=== PATIENT | female | born 1950 | race Caucasian/White ===

== ENCOUNTER 2016-08-27 20:54 | Inpatient (IN) | payer MEDICARE, OTHER ==
[~2016-08-27] VITALS: Ht 152.4 cm; Wt 94.2 kg
[~2016-08-27 20:54] MED LIST: KLON2TAB PO; LIDO5DIS35 TD; LORT7.5T3 PO
[2016-08-27 22:16] VITALS: BP 139/65; PULSE 75; RESP 16; TEMP 97.7; O2SAT 93
[2016-08-27] MEDS ORDERED: ESCI20TA PO (22:26)
[2016-08-27] MEDS ORDERED: RANI150C PO (22:26)
[2016-08-27] MEDS ORDERED: FERR325T PO (22:26)
[2016-08-27] MEDS ORDERED: GABA300C5 PO (22:26)
[2016-08-27] MEDS ORDERED: CLON2TAB PO (22:26)
[2016-08-27] MEDS ORDERED: LURA20TA PO (22:26)
[2016-08-27] MEDS ORDERED: PROP10TA6 PO (22:26)
[2016-08-27] MEDS ORDERED: GABA600T PO (22:26)
[2016-08-27] MEDS ORDERED: CALC1TAB87 PO (22:26)
[2016-08-27] MEDS ORDERED: CALC1CHW CHEW (22:26)
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
[2016-08-27 23:12] VITALS: BP 114/69; PULSE 73; RESP 18; O2SAT 94
[2016-08-28 00:01] LABS: BACTERIA, URINE RARE /hpf; BLOOD, URINE NEG (NEG); COMMENT (UR) CULT NOT INDICATED; CULTURE IF INDICATED CULT NOT INDICATED; GLUCOSE,URINE NEG (NEG); KETONE, URINE NEG (NEG); MUCUS URINE FEW /lpf (OCC); NITRITE,URINE NEG (NEG); SQUAMOUS EPITHELIAL CELL URINE 2 /hpf (0-5); TRANSITIONAL EPI CELLS, URINE <1 /hpf; URINE COLOR YELLOW (YELLW/STRAW)
[2016-08-28 00:02] LABS: AUTOMATED NEUTROPHIL # 5.8 TH/MM3 (1.8-7.7); BASOPHIL # 0.1 TH/MM3 (0-0.2); BASOPHIL % 0.9 % (0.0-2.0); EOSINOPHIL # 0.1 TH/MM3 (0-0.4); EOSINOPHIL % 1.4 % (0.0-4.0); HEMO FLAGS DIFF FINAL; LYMPH % 24.7 % (9.0-44.0); LYMPHOCYTE # 2.3 TH/MM3 (1.0-4.8); MEAN CELL VOLUME 90.3 FL (80.0-100.0); MEAN CORPUSCULAR HEMOGLOBIN 30.2 PG (27.0-34.0); MEAN CORPUSCULAR HGB CONC 33.5 % (32.0-36.0); MONO % 10.6 % (0.0-8.0); NEUT % 62.4 % (16.0-70.0); PLATELET COUNT 246 TH/MM3 (150-450); RED BLOOD COUNT 4.87 MIL/MM3 (4.00-5.30); RED CELL DISTRIBUTION WIDTH 13.2 % (11.6-17.2); WHITE BLOOD COUNT 9.3 TH/MM3 (4.0-11.0)
[2016-08-28 00:06] LABS: AMPHETAMINE, URINE NEG (NEG); BARBITURATES, URINE NEG (NEG); COCAINE, URINE NEG (NEG)
[2016-08-28 00:19] LABS: ANION GAP 6 MEQ/L (5-15); AST (GOT) 11 U/L (15-37); BLOOD UREA NITROGEN 16 MG/DL (7-18); CHLORIDE 105 MEQ/L (98-107); GLOMERULAR FILTRATION RATE 47 ML/MIN (>89); POTASSIUM 3.8 MEQ/L (3.5-5.1); SODIUM (NA) 143 MEQ/L (136-145)
[2016-08-28 00:22] LABS: ALKALINE PHOSPHATASE 77 U/L (45-117); ALT (GPT) 20 U/L (10-53); TOTAL BILIRUBIN ADULT 0.3 MG/DL (0.2-1.0)
[2016-08-28] MEDS ORDERED: diphenhydrAMINE HCL 50 MG CAP - HS PRN PO (02:45)
[2016-08-28] MEDS ORDERED: MAGNESIUM HYDROXIDE SUSP 30 ML CUP PO PRN (02:45)
[2016-08-28] MEDS ORDERED: ALUMINUM/MAGNESIUM/SIMETH 30 ML CUP PO PRN (02:45)
[2016-08-28] MEDS ORDERED: diphenhydrAMINE HCL 50 MG/ML VIAL - HS PRN IM (02:45)
[2016-08-28] MEDS ORDERED: PILL SPLITTER OTHER PRN (03:00)
[2016-08-28] MEDS ORDERED: CALCIUM CARBONATE 500 MG CHEWABLE TAB CHEW PRN (03:00)
[2016-08-28 04:00] VITALS: BP 129/85; PULSE 83; RESP 16; TEMP 97.7; O2SAT 92
[2016-08-28 04:16] VITALS: BP 134/72
[2016-08-28] MEDS: PROPRANOLOL HCL 10 MG TAB PO SCH ×2 (09:00→21:25)
[2016-08-28] MEDS: LURASIDONE 40 MG TAB PO SCH (10:23)
[2016-08-28] MEDS: ESCITALOPRAM OXALATE 20 MG TAB PO SCH (10:23)
[2016-08-28] MEDS: CALCIUM/VITAMIN D 250 MG/125 U TAB PO SCH (10:23)
[2016-08-28] MEDS: FAMOTIDINE 20 MG TAB PO SCH ×2 (10:23→21:25)
[2016-08-28] MEDS: FERROUS SULFATE 325 MG (65 MG ELEMENTAL IRON) TAB PO SCH (10:23)
[2016-08-28] MEDS: GABAPENTIN 300 MG CAP PO SCH ×3 (10:28→21:25)
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
[2016-08-28 19:36] VITALS: BP 122/72; PULSE 77; RESP 17; TEMP 97.9; O2SAT 94
[2016-08-28] MEDS: clonazePAM 1 MG TAB PO SCH (21:25)
[2016-08-29] MEDS: ACETAMINOPHEN 325 MG TAB PO PRN ×3 (05:26→21:14)
[2016-08-29 05:56] VITALS: BP 110/57; PULSE 72; RESP 17; TEMP 97.4; O2SAT 100
[2016-08-29] MEDS: LURASIDONE 40 MG TAB PO SCH (09:40)
[2016-08-29] MEDS: CALCIUM/VITAMIN D 250 MG/125 U TAB PO SCH (09:40)
[2016-08-29] MEDS: FAMOTIDINE 20 MG TAB PO SCH ×2 (09:40→21:07)
[2016-08-29] MEDS: FERROUS SULFATE 325 MG (65 MG ELEMENTAL IRON) TAB PO SCH (09:40)
[2016-08-29] MEDS: ESCITALOPRAM OXALATE 20 MG TAB PO SCH (09:41)
[2016-08-29] MEDS: GABAPENTIN 300 MG CAP PO SCH ×3 (09:46→21:06)
[2016-08-29 10:17] VITALS: BP 137/73; PULSE 85
[2016-08-29] MEDS: PROPRANOLOL HCL 10 MG TAB PO SCH ×2 (10:21→21:07)
--- NOTE | 2016-08-29 13:29 | HHI.PYPN ---
Subjective Remarks Pt seen and discussed with staff. She reports that she thinks she might have had a psychotic break. She states that at the group home she was experiencing visual hallucinations of a zoroastrian nature (crucifixes turning into fish, etc) and having difficulty determining anxiety. "I felt like I was waking up in a totally different place and I just felt that I wasn't where I was supposed to be." Pt reports that mood is depressed but calmer now with medications. No medication side effects. Review of Systems Psychiatric: COMPLAINS OF: Depression, Hallucinations Objective Alert: Yes [place]: Person, Place, Date, Situation Mood: Anxious, Depressed Affect: Restricted Memory Intact: Comment (impaired) Hallucinations: Visual Delusions: No Delusion Type: Other (none) Suicidal: Ideation (denies) Homicidal: Ideation (denies) Insight/Judgement poor Vitals/IOs Vital Signs Date Time Temp Pulse Resp B/P Pulse Ox O2 Delivery O2 Flow Rate FiO2 08/29/16 10:17 85 137/73 08/29/16 05:56 97.4 17 100 08/27/16 23:12 Room Air Intake and Output 08/28/16 08/28/16 08/29/16 08:00 16:00 00:00 Intake Total 960 ml 480 ml Balance 960 ml 480 ml Assessment & Plan Problem List: (1) Major depressive disorder, recurrent ICD Code: F33.9 (2) Adjustment disorder ICD Code: F43.20 Assessment & Plan Continue current tx plan. Estimated LOS: days Justification for Cont. Inpt. impairments in reality testing. Request HC Surrog/Guard Advoc?: No Problem Qualifiers (1) Adjustment disorder: Qualified Code: F43.24 - Adjustment disorder with disturbance of conduct Sallie Cruz MD Aug 29, 2016 13:29
[2016-08-29] MEDS: ASPIRIN EC 81 MG TABEC PO SCH (15:23)
[2016-08-29] MEDS: hydrOXYzine HCL 50 MG TAB PO PRN (15:28)
--- NOTE | 2016-08-29 15:31 | HHI.PR ---
Subjective Remarks Follow-up visit CVA, CKD 3, lupus, COPD. Patient seen today. Reports she is doing well. Denies pain and discomfort. Denies SOB/ dyspnea. Denies chest pain , palpitations, headaches, dizziness. Denies fevers, chills, n/v/d. Objective Vitals Vital Signs Date Time Temp Pulse Resp B/P Pulse Ox O2 Delivery O2 Flow Rate FiO2 08/29/16 10:17 85 137/73 08/29/16 05:56 97.4 72 17 110/57 100 08/28/16 19:36 97.9 77 17 122/72 94 I/O 08/28/16 08/28/16 08/28/16 08/29/16 08/29/16 08/29/16 07:00 15:00 23:00 07:00 15:00 23:00 Intake Total 960 ml 480 ml 0 ml 480 ml Balance 960 ml 480 ml 0 ml 480 ml Intake Oral 960 ml 480 ml 0 ml 480 ml # Voids 1 1 2 # Bowel Movements 0 0 Result Diagram: 08/27/16 23308/27/16 2330 Objective Remarks GENERAL: This is an obese, well-developed patient, in no apparent distress. SKIN: No rashes, ecchymoses or lesions. Cool and dry. HEAD: Atraumatic. Normocephalic. No temporal or scalp tenderness. EYES: Pupils equal round and reactive. Extraocular motions intact. No scleral icterus. No injection or drainage. Left lid droop. ENT: Nose without bleeding. Throat without erythema. Uvula midline. Airway patent. NECK: Trachea midline. No JVD or lymphadenopathy. Supple, nontender, no meningeal signs. CARDIOVASCULAR: Regular rate and rhythm without murmurs, gallops, or rubs. RESPIRATORY: Clear to auscultation. Breath sounds equal bilaterally. No wheezes , rales, or rhonchi. GASTROINTESTINAL: Abdomen soft, non-tender, nondistended. Bowel sounds active 4. No guarding. MUSCULOSKELETAL: Extremities without clubbing, cyanosis, or edema. No joint tenderness, effusion, or edema noted. No calf tenderness. Negative Homans sign bilaterally. NEUROLOGICAL: Awake and alert. Call him. Oriented 3. Motor and sensory grossly within normal limits. Normal speech. Unsteady gait walker use. A/P Problem List: (1) Major depressive disorder, recurrent ICD Code: F33.9 Status: Acute (2) Adjustment disorder ICD Code: F43.20 Status: Acute (3) CKD (chronic kidney disease) stage 3, GFR 30-59 ml/min ICD Code: N18.3 Status: Chronic (4) Lupus (systemic lupus erythematosus) ICD Code: M32.9 Status: Chronic (5) Fibromyalgia ICD Code: M79.7 Status: Chronic (6) COPD (chronic obstructive pulmonary disease) ICD Code: J44.9 Status: Chronic (7) CVA (cerebral vascular accident) ICD Code: I63.9 Status: Resolved Assessment and Plan Admitted to inpatient psychiatry unit for further evaluation. Consulted for medical management. Depression, adjustment disorder, bipolar disorder, vascular dementia - managed by psychiatry team. CVA - BP controlled. - Not on any BP meds. ASA recommended to discuss with PCP. - Check lipid profile pending - Fall precaution. Continue walker use. CKD 3 - creatinine 1.15, EGFR 47 - Avoid nephrotoxins. - Monitor BMP Lupus - no current flare ups Fibromyalgia, neuropathy - continue Neurontin. COPD - no exacerbation noted. Check lipid profile, and thyroid studies Discussed with patient, RN Written by Isaiah Lang, acting as scribe for Dr. Newsome on 08/29/16 at 14:50. The documentation accurately reflects the work performed [id number] by me on at 15:43. Problem Qualifiers (1) Adjustment disorder: Qualified Code: F43.24 - Adjustment disorder with disturbance of conduct Isaiah Adler Aug 29, 2016 15:31 Michael Newsome MD Aug 29, 2016 15:44
[2016-08-29 17:30] LABS: HDL CHOLESTEROL 65.2 MG/DL (40.0-60.0)
[2016-08-29 19:00] VITALS: BP 133/79; PULSE 90; RESP 17; TEMP 99.2; O2SAT 95
[2016-08-29] MEDS: clonazePAM 1 MG TAB PO SCH (21:07)
--- NOTE | 2016-08-29 22:07 | RADRPT ---
EXAM DATE/TIME: 08/29/2016 17:54 [facility] COMPARISON: No previous studies available for comparison. INDICATIONS : CVA. MEDICAL HISTORY : Renal failure, chronic. SURGICAL HISTORY : Cholecystectomy. Tubal ligation. ENCOUNTER: Initial ACUITY: 1 day PAIN SCORE: 0/10 LOCATION: cranial TECHNIQUE: Multiplanar, multisequence MRI of the brain was performed without contrast. FINDINGS: CEREBRUM: The ventricles are normal for age. No evidence of midline shift, mass lesion, hemorrhage or acute in farction. No extraaxial fluid collections are seen. The pituitary gland and suprasellar cistern are normal in configuration. WHITE MATTER: Mild signal abnormalities are seen in the white matter. POSTERIOR FOSSA: The cerebellum and brainstem are intact. The 4th ventricle is midline. The cerebellopontine angle is unremarkable. The cerebellar tonsils are normal in position. DIFFUSION IMAGING: No focal areas of restricted diffusion are seen. No evidence of acute infarction. EXTRACRANIAL: The visualized portions of the orbits and paranasal sinuses are unremarkable. CONCLUSION: 1. Minimal white matter ischemic changes. No acute findings. No recent infarct, mass effect or shift. Chema Steen MD on August 29, 2016 at 22:04 Board Certified Radiologist. This report was verified electronically.
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
[2016-08-30 05:08] VITALS: BP 118/67; PULSE 77; RESP 18; TEMP 98.6; O2SAT 95
[2016-08-30] MEDS: ASPIRIN EC 81 MG TABEC PO SCH (09:00)
[2016-08-30] MEDS: ESCITALOPRAM OXALATE 20 MG TAB PO SCH (10:00)
[2016-08-30] MEDS: CALCIUM/VITAMIN D 250 MG/125 U TAB PO SCH (10:00)
[2016-08-30] MEDS: FERROUS SULFATE 325 MG (65 MG ELEMENTAL IRON) TAB PO SCH (10:00)
[2016-08-30] MEDS: LURASIDONE 40 MG TAB PO SCH (10:01)
[2016-08-30] MEDS: FAMOTIDINE 20 MG TAB PO SCH ×2 (10:01→20:39)
[2016-08-30] MEDS: GABAPENTIN 300 MG CAP PO SCH ×3 (10:25→20:38)
[2016-08-30] MEDS: ACETAMINOPHEN 325 MG TAB PO PRN (10:25)
[2016-08-30] MEDS: PROPRANOLOL HCL 10 MG TAB PO SCH ×2 (10:32→20:39)
--- NOTE | 2016-08-30 10:34 | HHI.PR ---
Subjective Remarks F/U CVA. No complaints agrees with asa and statin aware of possible SE dw RN Objective Vitals Vital Signs Date Time Temp Pulse Resp B/P Pulse Ox O2 Delivery O2 Flow Rate FiO2 08/30/16 05:08 98.6 77 18 118/67 95 08/29/16 19:00 99.2 90 17 133/79 95 I/O 08/29/16 08/29/16 08/29/16 08/30/16 08/30/16 08/30/16 07:00 15:00 23:00 07:00 15:00 23:00 Intake Total 0 ml 960 ml 1030 ml 0 ml 0 ml Balance 0 ml 960 ml 1030 ml 0 ml 0 ml Intake Oral 0 ml 960 ml 1030 ml 0 ml 0 ml # Voids 2 1 3 3 # Bowel Movements 0 Result Diagram: 08/27/16 2330 08/27/16 2330 Imaging Last Impressions Brain MRI 08/29/16 0000 Signed Impressions: Service Date/Time: Monday, August 29, 2016 17:54 - CONCLUSION: 1. Minimal white matter ischemic changes. No acute findings. No recent infarct, mass effect or shift. Chema Steen MD Objective Remarks GENERAL: This is an obese, well-developed patient, in no apparent distress. SKIN: No rashes, ecchymoses or lesions. Cool and dry. HEAD: Atraumatic. Normocephalic. No temporal or scalp tenderness. EYES: Pupils equal round and reactive. Extraocular motions intact. No scleral icterus. No injection or drainage. Left lid droop. ENT: Nose without bleeding. Throat without erythema. Uvula midline. Airway patent. NECK: Trachea midline. No JVD or lymphadenopathy. Supple, nontender, no meningeal signs. CARDIOVASCULAR: Regular rate and rhythm without murmurs, gallops, or rubs. RESPIRATORY: Clear to auscultation. Breath sounds equal bilaterally. No wheezes , rales, or rhonchi. GASTROINTESTINAL: Abdomen soft, non-tender, nondistended. Bowel sounds active 4. No guarding. MUSCULOSKELETAL: Extremities without clubbing, cyanosis, or edema. No joint tenderness, effusion, or edema noted. No calf tenderness. Negative Homans sign bilaterally. NEUROLOGICAL: Awake and alert. Call him. Oriented 3. Motor and sensory grossly within normal limits. Normal speech. Unsteady gait walker use. A/P Problem List: (1) Major depressive disorder, recurrent ICD Code: F33.9 Status: Acute (2) Adjustment disorder ICD Code: F43.20 Status: Acute (3) CKD (chronic kidney disease) stage 3, GFR 30-59 ml/min ICD Code: N18.3 Status: Chronic (4) Lupus (systemic lupus erythematosus) ICD Code: M32.9 Status: Chronic (5) Fibromyalgia ICD Code: M79.7 Status: Chronic (6) COPD (chronic obstructive pulmonary disease) ICD Code: J44.9 Status: Chronic (7) CVA (cerebral vascular accident) ICD Code: I63.9 Status: Resolved Assessment and Plan Admitted to inpatient psychiatry unit for further evaluation. Consulted for medical management. Depression, adjustment disorder, bipolar disorder, vascular dementia - managed by psychiatry team. CVA , hx- MRI no acute findings. BP controlled. - Not on any BP meds. ASA recommended - Check lipid profile elevated LDL agrees with lipitor f/u LFts - Fall precaution. Continue walker use. - neuro ordered CUS and ECHO f/u results CKD 3 - creatinine 1.15, EGFR 47 - Avoid nephrotoxins. - Monitor BMP Lupus - no current flare ups Fibromyalgia, neuropathy - continue Neurontin. COPD - no exacerbation noted. Discharge Planning consider signing off Problem Qualifiers (1) Major depressive disorder, recurrent: Qualified Code: F33.3 - Severe episode of recurrent major depressive disorder, with psychotic features (2) Adjustment disorder: Qualified Code: F43.24 - Adjustment disorder with disturbance of conduct Michael Newsome MD Aug 30, 2016 10:34
[2016-08-30 12:10] LABS: BICARBONATE 27.2 MEQ/L (21.0-32.0); MAGNESIUM 2.2 MG/DL (1.5-2.5); POTASSIUM 3.8 MEQ/L (3.5-5.1)
[2016-08-30] MEDS: LACTOBACILLUS ACIDOPHILUS TAB PO SCH ×2 (12:39→18:31)
[2016-08-30] MEDS: ENOXAPARIN SODIUM 40 MG/0.4 ML SYRINGE SQ SCH (12:39)
--- NOTE | 2016-08-30 15:44 | HHI.PYPN ---
Subjective Remarks Pt seen and discussed with staff. She has been isolated to her room and only has come out for meals with much encouragement from staff. She reports decreased AVH today. No SI/HI Objective Alert: Yes [place]: Person, Place, Date, Situation Mood: Anxious, Depressed Affect: Restricted Memory Intact: Comment (impaired) Hallucinations: Visual (decreased) Delusions: No Delusion Type: Other (none) Suicidal: Ideation (denies) Homicidal: Ideation (denies) Insight/Judgement poor Labs Test 08/30/16 11:27 Sodium Level 144 MEQ/L Potassium Level 3.8 MEQ/L Chloride Level 107 MEQ/L Carbon Dioxide Level 27.2 MEQ/L Anion Gap 10 MEQ/L Blood Urea Nitrogen 16 MG/DL Creatinine 1.11 MG/DL Estimat Glomerular Filtration 49 ML/MIN Rate Random Glucose 107 MG/DL Calcium Level 8.5 MG/DL Magnesium Level 2.2 MG/DL Vitals/IOs Vital Signs Date Time Temp Pulse Resp B/P Pulse Ox O2 Delivery O2 Flow Rate FiO2 08/30/16 05:08 98.6 77 18 118/67 95 08/27/16 23:12 Room Air Intake and Output 08/29/16 08/29/16 08/30/16 08:00 16:00 00:00 Intake Total 240 ml 720 ml 1030 ml Balance 240 ml 720 ml 1030 ml Assessment & Plan Problem List: (1) Major depressive disorder, recurrent ICD Code: F33.9 (2) Adjustment disorder ICD Code: F43.20 Assessment & Plan Continue current tx plan. Estimated LOS: days Justification for Cont. Inpt. impairments in reality construction. Request HC Surrog/Guard Advoc?: No Problem Qualifiers (1) Major depressive disorder, recurrent: Qualified Code: F33.3 - Severe episode of recurrent major depressive disorder, with psychotic features (2) Adjustment disorder: Qualified Code: F43.24 - Adjustment disorder with disturbance of conduct Sallie Cruz MD Aug 30, 2016 15:44
[2016-08-30 19:30] VITALS: BP 120/69; PULSE 72; RESP 16; TEMP 98.6
[2016-08-30] MEDS: clonazePAM 1 MG TAB PO SCH (20:38)
[2016-08-30] MEDS: ATORVASTATIN 10 MG TAB PO SCH (20:39)
[2016-08-31 05:13] VITALS: BP 96/50; PULSE 78; RESP 18; TEMP 97.9; O2SAT 97
[2016-08-31] MEDS: ENOXAPARIN SODIUM 40 MG/0.4 ML SYRINGE SQ SCH (08:55)
[2016-08-31] MEDS: PROPRANOLOL HCL 10 MG TAB PO SCH ×2 (08:56→20:40)
[2016-08-31] MEDS: LACTOBACILLUS ACIDOPHILUS TAB PO SCH ×3 (08:56→18:06)
[2016-08-31] MEDS: ESCITALOPRAM OXALATE 20 MG TAB PO SCH (08:56)
[2016-08-31] MEDS: CALCIUM/VITAMIN D 250 MG/125 U TAB PO SCH (08:56)
[2016-08-31] MEDS: FERROUS SULFATE 325 MG (65 MG ELEMENTAL IRON) TAB PO SCH (08:56)
[2016-08-31] MEDS: FAMOTIDINE 20 MG TAB PO SCH ×2 (08:57→20:40)
[2016-08-31] MEDS: LURASIDONE 40 MG TAB PO SCH (08:58)
[2016-08-31] MEDS: ASPIRIN EC 81 MG TABEC PO SCH (08:59)
[2016-08-31] MEDS: GABAPENTIN 300 MG CAP PO SCH ×2 (12:10→20:40)
[2016-08-31] MEDS: ACETAMINOPHEN 325 MG TAB PO PRN (12:15)
--- NOTE | 2016-08-31 15:16 | HHI.PYPN ---
Subjective Remarks Patient discussed with treatment team, chart review, seen on unit. Compliant medications. Patient continues to isolate showing some irritability with little insight. She does denies suicidality at this time Review of Systems Except as stated in HPI: all other systems reviewed are Neg Objective Alert: Yes [place]: Person, Place, Date, Situation Mood: Anxious, Depressed Affect: Restricted Memory Intact: Comment (impaired) Hallucinations: Visual (decreased) Delusions: No Delusion Type: Other (none) Suicidal: Ideation (denies) Homicidal: Ideation (denies) Insight/Judgement Poor Vitals/IOs Vital Signs Date Time Temp Pulse Resp B/P Pulse Ox O2 Delivery O2 Flow Rate FiO2 08/31/16 05:13 97.9 78 18 96/50 97 08/27/16 23:12 Room Air Intake and Output 08/30/16 08/30/16 08/31/16 08:00 16:00 00:00 Intake Total 0 ml 480 ml Output Total 1 ml Balance 0 ml 479 ml Assessment & Plan Problem List: (1) Major depressive disorder, recurrent ICD Code: F33.9 (2) Adjustment disorder ICD Code: F43.20 Assessment & Plan Estimated LOS: days patient continue somewhat confused and irritable, compliant medications, for now continue treatment Justification for Cont. Inpt. At this time patient was significantly decompensate if placement a lower level of care Discharge Planning To be determined Request HC Surrog/Guard Advoc?: No Problem Qualifiers (1) Major depressive disorder, recurrent: Qualified Code: F33.3 - Severe episode of recurrent major depressive disorder, with psychotic features (2) Adjustment disorder: Qualified Code: F43.24 - Adjustment disorder with disturbance of conduct Lavelle De La Vega MD Aug 31, 2016 15:15
[2016-08-31] MEDS: ATORVASTATIN 10 MG TAB PO SCH (20:40)
[2016-08-31] MEDS: clonazePAM 1 MG TAB PO SCH (20:40)
[2016-08-31 21:00] VITALS: BP 156/75; PULSE 79; RESP 18; O2SAT 95
[2016-08-31 21:26] VITALS: BP 118/63; PULSE 68; RESP 18; TEMP 96.5; O2SAT 94
[2016-09-01 06:09] VITALS: BP 111/57; PULSE 76; RESP 18; TEMP 97.7; O2SAT 97
[2016-09-01] MEDS: FERROUS SULFATE 325 MG (65 MG ELEMENTAL IRON) TAB PO SCH (09:16)
[2016-09-01] MEDS: ASPIRIN EC 81 MG TABEC PO SCH (09:16)
[2016-09-01] MEDS: LACTOBACILLUS ACIDOPHILUS TAB PO SCH ×3 (09:16→18:00)
[2016-09-01] MEDS: FAMOTIDINE 20 MG TAB PO SCH ×2 (09:17→21:16)
[2016-09-01] MEDS: GABAPENTIN 300 MG CAP PO SCH ×2 (09:19→21:16)
[2016-09-01] MEDS: CALCIUM/VITAMIN D 250 MG/125 U TAB PO SCH (09:19)
[2016-09-01] MEDS: LURASIDONE 40 MG TAB PO SCH ×2 (09:21→18:00)
[2016-09-01] MEDS: ENOXAPARIN SODIUM 40 MG/0.4 ML SYRINGE SQ SCH (09:21)
[2016-09-01] MEDS: ESCITALOPRAM OXALATE 20 MG TAB PO SCH (09:21)
[2016-09-01] MEDS: PROPRANOLOL HCL 10 MG TAB PO SCH ×2 (09:25→21:16)
--- NOTE | 2016-09-01 11:50 | RADRPT ---
EXAM DATE/TIME: 09/01/2016 10:49 [facility] COMPARISON: No previous studies available for comparison. INDICATIONS : Cerebrovascular accident. MEDICAL HISTORY : Chronic obstructive pulmonary disease. Bipolar. CVA. Fibromyalgia. Neuropathy. Lupus SURGICAL HISTORY : Cholecystectomy. ENCOUNTER: Initial ACUITY: 1 week PAIN SCORE: 6/10 LOCATION: Bilateral neck PEAK SYSTOLIC VELOCITIES (cm/sec): ICA/CCA RATIO: Right: 1.4 Left: 1.1 ICA: Right: 97 Left: 100 CCA: Right: 68 Left: 88 ECA: Right: 89 Left: 66 VERTEBRAL: Right: 36 antegrade Left: 48 antegrade Elevated flow velocities and ICA/CCA ratios have been found to correlate with increased degrees of vessel stenosis, calculated as percentage of diameter relative to a normal segment of distal ICA/CCA FINDINGS: RIGHT CAROTID: No significant stenosis is visualized. Mild plaque is present. The waveforms are within normal limits . LEFT CAROTID: No significant stenosis is visualized. Mild plaque is present. The waveforms are within normal limit s. VERTEBRAL ARTERIES: Antegrade flow is seen in both vertebral arteries. MISCELLANEOUS: None. CONCLUSION: Mild plaque with no evidence of stenosis. Moises Sandoval MD on September 01, 2016 at 11:48 Board Certified Radiologist. This report was verified electronically.
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
[2016-09-01 19:29] VITALS: BP 131/63; PULSE 78; RESP 17; TEMP 97.8; O2SAT 97
[2016-09-01] MEDS: ATORVASTATIN 10 MG TAB PO SCH (21:16)
[2016-09-01] MEDS: clonazePAM 1 MG TAB PO SCH (21:16)
[2016-09-02 05:42] VITALS: BP 103/51; PULSE 85; RESP 14; TEMP 98.6; O2SAT 91
[2016-09-02] MEDS: LACTOBACILLUS ACIDOPHILUS TAB PO SCH ×3 (09:00→17:45)
[2016-09-02] MEDS: FAMOTIDINE 20 MG TAB PO SCH ×2 (09:06→20:52)
[2016-09-02] MEDS: FERROUS SULFATE 325 MG (65 MG ELEMENTAL IRON) TAB PO SCH (09:06)
[2016-09-02] MEDS: PROPRANOLOL HCL 10 MG TAB PO SCH ×2 (09:07→20:53)
[2016-09-02] MEDS: GABAPENTIN 300 MG CAP PO SCH ×2 (09:07→20:52)
[2016-09-02] MEDS: ASPIRIN EC 81 MG TABEC PO SCH (09:07)
[2016-09-02] MEDS: ARIPiprazole 10 MG TAB PO SCH (09:07)
[2016-09-02] MEDS: ESCITALOPRAM OXALATE 20 MG TAB PO SCH (09:07)
[2016-09-02] MEDS: CALCIUM/VITAMIN D 250 MG/125 U TAB PO SCH (09:07)
[2016-09-02] MEDS: ENOXAPARIN SODIUM 40 MG/0.4 ML SYRINGE SQ SCH (09:08)
--- NOTE | 2016-09-02 11:59 | HHI.PYPN ---
Subjective Remarks Patient seen in her room with nurse Sima, patient alert calm cooperative fluid occasional small smile. Now stating that she feels she responded better to the daily dose of 600 mg gabapentin than the 300 mg twice a day. Even though she complained of some mild stomachache with the higher dose. Will offer her the 600 mg at at bedtime and observe. Otherwise patient compliant medications does denies suicidality at this time Review of Systems Except as stated in HPI: all other systems reviewed are Neg Objective Alert: Yes [place]: Person, Place, Date, Situation Mood: Anxious, Depressed Affect: Restricted Memory Intact: Comment (impaired) Hallucinations: Visual (decreased) Delusions: No Delusion Type: Other (none) Suicidal: Ideation (denies) Homicidal: Ideation (denies) Insight/Judgement Very poor Vitals/IOs Vital Signs Date Time Temp Pulse Resp B/P Pulse Ox O2 Delivery O2 Flow Rate FiO2 09/02/16 05:42 98.6 85 14 103/51 91 Intake and Output 09/01/16 09/01/16 09/02/16 08:00 16:00 00:00 Intake Total 0 ml 1500 ml Balance 0 ml 1500 ml Assessment & Plan Problem List: (1) Major depressive disorder, recurrent ICD Code: F33.9 (2) Adjustment disorder ICD Code: F43.20 Assessment & Plan Estimated LOS: days patient overall calmer more appropriate with some improvement in her affect since admission. Adjust medications as mentioned above Justification for Cont. Inpt. At this time patient will decompensate if placed at a lower level of care Discharge Planning To be determined Request HC Surrog/Guard Advoc?: No Problem Qualifiers (1) Major depressive disorder, recurrent: Qualified Code: F33.3 - Severe episode of recurrent major depressive disorder, with psychotic features (2) Adjustment disorder: Qualified Code: F43.24 - Adjustment disorder with disturbance of conduct Lavelle De La Vega MD Sep 02, 2016 11:59
--- NOTE | 2016-09-02 15:00 | HHI.PR ---
Subjective Remarks F/U CVA. Patient denies shortness of breath chest pain fevers or chills. Patient does report some nausea but no vomiting this was started after her Latuda and gabapentin was increased 09/01/2016. Patient also reports between 6 and 8 watery bowel movements for the past 2 days. Denies abdominal pain or cramping. Objective Vitals Vital Signs Date Time Temp Pulse Resp B/P Pulse Ox O2 Delivery O2 Flow Rate FiO2 09/02/16 05:42 98.6 85 14 103/51 91 09/01/16 19:29 97.8 78 17 131/63 97 I/O 09/01/16 09/01/16 09/01/16 09/02/16 09/02/16 09/02/16 07:00 15:00 23:00 07:00 15:00 23:00 Intake Total 0 ml 1500 ml 0 ml 0 ml Balance 0 ml 1500 ml 0 ml 0 ml Intake Oral 0 ml 1500 ml 0 ml 0 ml # Voids 1 5 1 Result Diagram: 08/30/16 1127 Objective Remarks GENERAL: This is an obese, well-developed patient, in no apparent distress. SKIN: No rashes, ecchymoses or lesions. Cool and dry. HEAD: Atraumatic. Normocephalic. No temporal or scalp tenderness. EYES: Pupils equal round and reactive. Extraocular motions intact. No scleral icterus. No injection or drainage. Left lid droop. ENT: Nose without bleeding. Throat without erythema. Uvula midline. Airway patent. NECK: Trachea midline. No JVD or lymphadenopathy. Supple, nontender, no meningeal signs. CARDIOVASCULAR: Regular rate and rhythm without murmurs, gallops, or rubs. RESPIRATORY: Clear to auscultation. Breath sounds equal bilaterally. No wheezes , rales, or rhonchi. GASTROINTESTINAL: Abdomen soft, non-tender, nondistended. Bowel sounds active 4. No guarding. MUSCULOSKELETAL: Extremities without clubbing, cyanosis, or edema. No joint tenderness, effusion, or edema noted. No calf tenderness. Negative Homans sign bilaterally. NEUROLOGICAL: Awake and alert. Call him. Oriented 3. Motor and sensory grossly within normal limits. Normal speech. Unsteady gait walker use. A/P Problem List: (1) Major depressive disorder, recurrent ICD Code: F33.9 Status: Acute (2) Adjustment disorder ICD Code: F43.20 Status: Acute (3) CKD (chronic kidney disease) stage 3, GFR 30-59 ml/min ICD Code: N18.3 Status: Chronic (4) Lupus (systemic lupus erythematosus) ICD Code: M32.9 Status: Chronic (5) Fibromyalgia ICD Code: M79.7 Status: Chronic (6) COPD (chronic obstructive pulmonary disease) ICD Code: J44.9 Status: Chronic (7) CVA (cerebral vascular accident) ICD Code: I63.9 Status: Resolved Assessment and Plan Admitted to inpatient psychiatry unit for further evaluation. Consulted for medical management. Depression, adjustment disorder, bipolar disorder, vascular dementia - managed by psychiatry team. CVA , hx- MRI no acute findings. BP controlled. - Not on any BP meds. ASA recommended - Check lipid profile elevated LDL agrees with lipitor recommend f/u LFts as outpatient - Fall precaution. Continue walker use. - neuro ordered bilateral carotid arteries reviewed reveals mild plaquing with no evidence of stenosis - ECHO pending CKD 3 - creatinine 1.11, EGFR 49 - Avoid nephrotoxins. - Monitor BMP Lupus - no current flare ups Fibromyalgia, neuropathy - continue Neurontin. COPD - no exacerbation noted. Diarrhea- continue to monitor check C. difficile Nausea after medication change will defer to psychology team Discussed plan of care with patient, RN and Dr. Valentin Problem Qualifiers (1) Major depressive disorder, recurrent: Qualified Code: F33.3 - Severe episode of recurrent major depressive disorder, with psychotic features (2) Adjustment disorder: Qualified Code: F43.24 - Adjustment disorder with disturbance of conduct Eve Pena Sep 02, 2016 15:00 Damien Valentin MD Sep 11, 2016 12:22
[2016-09-02] MEDS: LURASIDONE 40 MG TAB PO SCH (17:45)
[2016-09-02 18:13] VITALS: BP 143/67; PULSE 88; RESP 18; TEMP 98.9; O2SAT 96
--- NOTE | 2016-09-02 19:00 | EC ---
Study Study Date:09/02/2016 STUDY CONCLUSIONS SUMMARY LEFT VENTRICLE: The cavity size was normal. Wall thickness was normal. Systolic function was normal. The estimated ejection fraction was in the range of 55% to 60%. Wall motion was normal; there were no regional wall motion abnormalities. If LV function is below 40, please consider prescribing an ACEI or ARB or document rationale for non-use. PROCEDURE DATA STUDY STATUS: Elective. Procedure: Transthoracic echocardiography. Image quality was good. Scanning was performed from the parasternal, apical, and subcostal acoustic windows. Study completion: The patient tolerated the procedure well. Transthoracic echocardiography. M-mode, complete 2D, complete spectral Doppler, and color Doppler. Patient status: Inpatient. CARDIAC ANATOMY LEFT VENTRICLE: The cavity size was normal. Wall thickness was normal. Systolic function was normal. The estimated ejection fraction was in the range of 55% to 60%. Wall motion was normal; there were no regional wall motion abnormalities. AORTIC VALVE: Trileaflet; normal thickness leaflets. Doppler: Transvalvular velocity was within the normal range. There was no stenosis. No regurgitation. AORTA: Aortic root: The aortic root was normal in size. MITRAL VALVE: Structurally normal valve. Doppler: Transvalvular velocity was within the normal range. There was no evidence for stenosis. No regurgitation. Peak gradient: 2mm Hg (D). LEFT ATRIUM: The atrium was normal in size. RIGHT VENTRICLE: The cavity size was normal. Wall thickness was normal. PULMONIC VALVE: Doppler: Transvalvular velocity was within the normal range. There was no evidence for stenosis. No regurgitation. TRICUSPID VALVE: Structurally normal valve. Doppler: Transvalvular velocity was within the normal range. No regurgitation. PULMONARY ARTERY: The main pulmonary artery was normal-sized. Systolic pressure was within the normal range. RIGHT ATRIUM: The atrium was normal in size. PERICARDIUM: There was no pericardial effusion. SYSTEMIC VEINS: Inferior vena cava: The vessel was normal in size. BASIC MEASUREMENTS ADULT NORMAL Left ventricle LV internal dimension, ED, chordal level, 49.3 mm 43-52 PLAX LV posterior wall thickness, ED 7.79 mm IVS/LVPW ratio, ED 1.15 <1.3 Ventricular septum Septal thickness, ED 8.92 mm Aortic valve Leaflet separation 21 mm 15-26 Left atrium Anterior-posterior dimension 32 mm Right ventricle RV internal dimension, ED, PLAX 23.9 mm 19-38 BASIC MEASUREMENTS ADULT NORMAL Aortic valve Leaflet separation 21 mm 15-26 Aorta Root diameter, ED 28 mm 20-37 DOPPLER MEASUREMENTS ADULT NORMAL Mitral valve Peak E-wave velocity 76 cm/s Peak A-wave velocity 79 cm/s Peak gradient, D 2 mm Hg Peak E/A ratio 1 Tricuspid valve Regurgitant peak velocity 264 cm/s Peak RV-RA gradient, S 28 mm Hg Maximal regurgitant velocity 264 cm/s LEGEND: Mean values are shown as u=mean value. Asterisk (*) bianchi values outside specified normal range. Prepared and signed by Corky Vela [id number]
[2016-09-02] MEDS: ATORVASTATIN 10 MG TAB PO SCH (20:52)
[2016-09-02] MEDS: clonazePAM 1 MG TAB PO SCH (20:53)
[2016-09-03 06:16] VITALS: BP 105/58; PULSE 82; RESP 17; TEMP 98.3; O2SAT 95
[2016-09-03] MEDS: ARIPiprazole 10 MG TAB PO SCH (08:39)
[2016-09-03] MEDS: PROPRANOLOL HCL 10 MG TAB PO SCH ×2 (08:39→21:46)
[2016-09-03] MEDS: LACTOBACILLUS ACIDOPHILUS TAB PO SCH ×3 (08:39→17:30)
[2016-09-03] MEDS: FERROUS SULFATE 325 MG (65 MG ELEMENTAL IRON) TAB PO SCH (08:39)
[2016-09-03] MEDS: ASPIRIN EC 81 MG TABEC PO SCH (08:39)
[2016-09-03] MEDS: ESCITALOPRAM OXALATE 20 MG TAB PO SCH (08:39)
[2016-09-03] MEDS: CALCIUM/VITAMIN D 250 MG/125 U TAB PO SCH (08:40)
[2016-09-03] MEDS: ENOXAPARIN SODIUM 40 MG/0.4 ML SYRINGE SQ SCH (08:40)
[2016-09-03] MEDS: FAMOTIDINE 20 MG TAB PO SCH ×2 (08:40→21:46)
--- NOTE | 2016-09-03 12:22 | HHI.PYPN ---
Subjective Remarks Patient seen in day room with nurse Sima, patient calm pleasant stating today for the first time she is pain-free. Feels medication is helping she also denies suicidality or homicidality voices or visions. For now continue treatment Review of Systems Except as stated in HPI: all other systems reviewed are Neg Objective Alert: Yes [place]: Person, Place, Date, Situation Mood: Anxious, Depressed Affect: Restricted Memory Intact: Comment (impaired) Hallucinations: Visual (decreased) Delusions: No Delusion Type: Other (none) Suicidal: Ideation (denies) Homicidal: Ideation (denies) Insight/Judgement Poor Vitals/IOs Vital Signs Date Time Temp Pulse Resp B/P Pulse Ox O2 Delivery O2 Flow Rate FiO2 09/03/16 06:16 98.3 82 17 105/58 95 Intake and Output 09/02/16 09/02/16 09/03/16 08:00 16:00 00:00 Intake Total 0 ml 0 ml 960 ml Balance 0 ml 0 ml 960 ml Assessment & Plan Problem List: (1) Major depressive disorder, recurrent ICD Code: F33.9 (2) Adjustment disorder ICD Code: F43.20 Assessment & Plan Estimated LOS: days patient calmer more cooperative, now denies any pain. Compliant medications. Justification for Cont. Inpt. At this time patient will decompensate if placed on lower level of care Discharge Planning To be determined Request HC Surrog/Guard Advoc?: No Problem Qualifiers (1) Major depressive disorder, recurrent: Qualified Code: F33.3 - Severe episode of recurrent major depressive disorder, with psychotic features (2) Adjustment disorder: Qualified Code: F43.24 - Adjustment disorder with disturbance of conduct Lavelle De La Vega MD Sep 03, 2016 12:22
[2016-09-03 12:54] LABS: C. DIFF EPI 027 PRESUMPTIVE NEGATIVE (NEGATIVE); C. DIFF TOXIN PCR NEGATIVE (NEGATIVE)
--- NOTE | 2016-09-03 13:13 | HHI.PR ---
Subjective Remarks F/U CVA. Patient denies shortness of breath chest pain fevers or chills. Patient does report some nausea but no vomiting this was started after her Latuda and gabapentin was increased 09/01/2016. Patient also reports no further BM. Denies abdominal pain or cramping. Objective Vitals Vital Signs Date Time Temp Pulse Resp B/P Pulse Ox O2 Delivery O2 Flow Rate FiO2 09/03/16 06:16 98.3 82 17 105/58 95 09/02/16 18:13 98.9 88 18 143/67 96 I/O 09/02/16 09/02/16 09/02/16 09/03/16 09/03/16 09/03/16 07:00 15:00 23:00 07:00 15:00 23:00 Intake Total 0 ml 0 ml 960 ml 0 ml Balance 0 ml 0 ml 960 ml 0 ml Intake Oral 0 ml 0 ml 960 ml 0 ml # Voids 1 4 1 # Bowel Movements 1 Result Diagram: 08/30/16 1127 Objective Remarks GENERAL: This is an obese, well-developed patient, in no apparent distress. SKIN: No rashes, ecchymoses or lesions. Cool and dry. HEAD: Atraumatic. Normocephalic. No temporal or scalp tenderness. EYES: Pupils equal round and reactive. Extraocular motions intact. No scleral icterus. No injection or drainage. Left lid droop. ENT: Nose without bleeding. Throat without erythema. Uvula midline. Airway patent. NECK: Trachea midline. No JVD or lymphadenopathy. Supple, nontender, no meningeal signs. CARDIOVASCULAR: Regular rate and rhythm without murmurs, gallops, or rubs. RESPIRATORY: Clear to auscultation. Breath sounds equal bilaterally. No wheezes , rales, or rhonchi. GASTROINTESTINAL: Abdomen soft, non-tender, nondistended. Bowel sounds active 4. No guarding. MUSCULOSKELETAL: Extremities without clubbing, cyanosis, or edema. No joint tenderness, effusion, or edema noted. No calf tenderness. Negative Homans sign bilaterally. NEUROLOGICAL: Awake and alert. Call him. Oriented 3. Motor and sensory grossly within normal limits. Normal speech. Unsteady gait walker use. A/P Problem List: (1) Major depressive disorder, recurrent ICD Code: F33.9 Status: Acute (2) Adjustment disorder ICD Code: F43.20 Status: Acute (3) CKD (chronic kidney disease) stage 3, GFR 30-59 ml/min ICD Code: N18.3 Status: Chronic (4) Lupus (systemic lupus erythematosus) ICD Code: M32.9 Status: Chronic (5) Fibromyalgia ICD Code: M79.7 Status: Chronic (6) COPD (chronic obstructive pulmonary disease) ICD Code: J44.9 Status: Chronic (7) CVA (cerebral vascular accident) ICD Code: I63.9 Status: Resolved Assessment and Plan Admitted to inpatient psychiatry unit for further evaluation. Consulted for medical management. Depression, adjustment disorder, bipolar disorder, vascular dementia - managed by psychiatry team. CVA , hx- MRI no acute findings. BP controlled. - Not on any BP meds. ASA recommended - Check lipid profile elevated LDL agrees with lipitor recommend f/u LFts as outpatient - Fall precaution. Continue walker use. - neuro ordered bilateral carotid arteries reviewed reveals mild plaquing with no evidence of stenosis - ECHO reviewed EF 55-65% CKD 3 - creatinine 1.11, EGFR 49 - Avoid nephrotoxins. - Monitor BMP Lupus - no current flare ups Fibromyalgia, neuropathy - continue Neurontin. COPD - no exacerbation noted. Diarrhea- resolved if reoccurs recommend check C. difficile Nausea after medication change will defer to psychology team Patient appears medically stable at this time we'll sign off. If patient's condition changes or further assistance is needed please reconsult. Recommend after discharge patient continue aspirin and Lipitor follow-up with PCP and neurology Discussed plan of care with patient, RN and Dr. Valentin Problem Qualifiers (1) Major depressive disorder, recurrent: Qualified Code: F33.3 - Severe episode of recurrent major depressive disorder, with psychotic features (2) Adjustment disorder: Qualified Code: F43.24 - Adjustment disorder with disturbance of conduct Eve Pena Sep 03, 2016 13:13
[2016-09-03] MEDS ORDERED: LIPI10TA PO (13:14)
[2016-09-03] MEDS ORDERED: ASPI81TA11 PO (13:14)
[2016-09-03] MEDS: LURASIDONE 40 MG TAB PO SCH (17:30)
[2016-09-03 19:17] VITALS: BP 140/63; PULSE 85; RESP 18; TEMP 99
[2016-09-03] MEDS: ATORVASTATIN 10 MG TAB PO SCH (21:45)
[2016-09-03] MEDS: ACETAMINOPHEN 325 MG TAB PO PRN (21:45)
[2016-09-03] MEDS: GABAPENTIN 300 MG CAP PO SCH (21:46)
[2016-09-03] MEDS: clonazePAM 1 MG TAB PO SCH (21:47)
[2016-09-04 05:16] VITALS: BP 101/57; PULSE 82; RESP 18; TEMP 97.8; O2SAT 99
[2016-09-04] MEDS: LACTOBACILLUS ACIDOPHILUS TAB PO SCH ×3 (08:57→18:00)
[2016-09-04] MEDS: FERROUS SULFATE 325 MG (65 MG ELEMENTAL IRON) TAB PO SCH (08:57)
[2016-09-04] MEDS: ESCITALOPRAM OXALATE 20 MG TAB PO SCH (08:58)
[2016-09-04] MEDS: CALCIUM/VITAMIN D 250 MG/125 U TAB PO SCH (08:58)
[2016-09-04] MEDS: ASPIRIN EC 81 MG TABEC PO SCH (08:58)
[2016-09-04] MEDS: ARIPiprazole 10 MG TAB PO SCH (08:59)
[2016-09-04] MEDS: FAMOTIDINE 20 MG TAB PO SCH ×2 (09:00→21:00)
[2016-09-04] MEDS: ENOXAPARIN SODIUM 40 MG/0.4 ML SYRINGE SQ SCH (09:09)
[2016-09-04 09:58] VITALS: BP 118/63; PULSE 94
--- NOTE | 2016-09-04 12:14 | HHI.PYPN ---
Subjective Remarks Patient seen in her room with nurse Citlalli and medical student Florinda, patient calm cooperative denying suicidality homicidality voices or visions. Though socially little insight into her behaviors that led to the problem with placement issues at this time. Patient compliant medications Review of Systems Except as stated in HPI: all other systems reviewed are Neg Objective Alert: Yes [place]: Person, Place, Date, Situation Mood: Anxious, Depressed Affect: Restricted Memory Intact: Comment (impaired) Hallucinations: Visual (decreased) Delusions: No Delusion Type: Other (none) Suicidal: Ideation (denies) Homicidal: Ideation (denies) Insight/Judgement Poor to fair Vitals/IOs Vital Signs Date Time Temp Pulse Resp B/P Pulse Ox O2 Delivery O2 Flow Rate FiO2 09/04/16 09:58 94 118/63 09/04/16 05:16 97.8 18 99 Intake and Output 09/03/16 09/03/16 09/04/16 08:00 16:00 00:00 Intake Total 0 ml 600 ml 120 ml Balance 0 ml 600 ml 120 ml Assessment & Plan Problem List: (1) Major depressive disorder, recurrent ICD Code: F33.9 (2) Adjustment disorder ICD Code: F43.20 Assessment & Plan Estimated LOS: days patient calm more cooperative today mood is improved, denying suicidality. Placement remains quite problematic Justification for Cont. Inpt. At this time patient would decompensate if placed in a lower level of care Discharge Planning To be determined Request HC Surrog/Guard Advoc?: No Problem Qualifiers (1) Major depressive disorder, recurrent: Qualified Code: F33.3 - Severe episode of recurrent major depressive disorder, with psychotic features (2) Adjustment disorder: Qualified Code: F43.24 - Adjustment disorder with disturbance of conduct Lavelle De La Vega MD Sep 04, 2016 12:14
[2016-09-04] MEDS: PROPRANOLOL HCL 10 MG TAB PO SCH ×2 (12:40→20:54)
[2016-09-04] MEDS: LURASIDONE 40 MG TAB PO SCH (18:00)
[2016-09-04] MEDS: hydrOXYzine HCL 50 MG TAB PO PRN (18:26)
[2016-09-04] MEDS: ACETAMINOPHEN 325 MG TAB PO PRN ×2 (18:27→21:02)
[2016-09-04 18:40] VITALS: BP 123/66; PULSE 92; RESP 18; TEMP 96.9; O2SAT 96
[2016-09-04] MEDS: ATORVASTATIN 10 MG TAB PO SCH (20:54)
[2016-09-04] MEDS: clonazePAM 1 MG TAB PO SCH (20:54)
[2016-09-04] MEDS: GABAPENTIN 300 MG CAP PO SCH (20:54)
[2016-09-05 05:42] VITALS: BP 108/57; PULSE 81; RESP 16; TEMP 98.4; O2SAT 92
[2016-09-05] MEDS: FAMOTIDINE 20 MG TAB PO SCH ×2 (08:51→20:45)
[2016-09-05] MEDS: FERROUS SULFATE 325 MG (65 MG ELEMENTAL IRON) TAB PO SCH (08:51)
[2016-09-05] MEDS: ARIPiprazole 10 MG TAB PO SCH (08:51)
[2016-09-05] MEDS: LACTOBACILLUS ACIDOPHILUS TAB PO SCH ×3 (08:51→17:18)
[2016-09-05] MEDS: ESCITALOPRAM OXALATE 20 MG TAB PO SCH (08:51)
[2016-09-05] MEDS: CALCIUM/VITAMIN D 250 MG/125 U TAB PO SCH (08:51)
[2016-09-05] MEDS: PROPRANOLOL HCL 10 MG TAB PO SCH ×2 (08:51→20:45)
[2016-09-05] MEDS: ENOXAPARIN SODIUM 40 MG/0.4 ML SYRINGE SQ SCH (08:52)
[2016-09-05] MEDS: ASPIRIN EC 81 MG TABEC PO SCH (09:00)
--- NOTE | 2016-09-05 12:42 | HHI.PYPN ---
Subjective Remarks Patient was seen and case discussed with nursing. Patient is initially irritable but then opens up during the interview. She discusses her homicidal ideation towards her roommate. However she says that this is only in her presence and now that she will never see her again she has known thoughts or intent of hurting her. Patient is disorganized and then has a bizarre delusion towards the end her interview. 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 at night with his adams Objective Alert: Yes [place]: Person, Place, Date, Situation Mood: Anxious, Depressed Affect: Restricted Memory Intact: Comment (impaired) Hallucinations: Visual (decreased) Delusions: No Delusion Type: Paranoid, Other (none) Suicidal: Ideation (denies) Homicidal: Ideation (denies) Insight/Judgement Poor Vitals/IOs Vital Signs Date Time Temp Pulse Resp B/P Pulse Ox O2 Delivery O2 Flow Rate FiO2 09/05/16 05:42 98.4 81 16 108/57 92 Intake and Output 09/04/16 09/04/16 09/05/16 08:00 16:00 00:00 Intake Total 240 ml 1160 ml Balance 240 ml 1160 ml Assessment & Plan Problem List: (1) Major depressive disorder, recurrent ICD Code: F33.9 (2) Adjustment disorder ICD Code: F43.20 Assessment & Plan Continue current treatment plan Justification for Cont. Inpt. Patient will decompensate in a less restrictive setting Request HC Surrog/Guard Advoc?: No Problem Qualifiers (1) Major depressive disorder, recurrent: Qualified Code: F33.3 - Severe episode of recurrent major depressive disorder, with psychotic features (2) Adjustment disorder: Qualified Code: F43.24 - Adjustment disorder with disturbance of conduct Eder Brennan DO Sep 05, 2016 12:42
[2016-09-05] MEDS: hydrOXYzine HCL 50 MG TAB PO PRN (14:06)
[2016-09-05] MEDS: ACETAMINOPHEN 325 MG TAB PO PRN ×2 (16:25→20:58)
[2016-09-05] MEDS: LURASIDONE 40 MG TAB PO SCH (17:18)
[2016-09-05 20:11] VITALS: BP 120/60; PULSE 76; RESP 16; TEMP 98.2; O2SAT 93
[2016-09-05] MEDS: GABAPENTIN 300 MG CAP PO SCH (20:45)
[2016-09-05] MEDS: clonazePAM 1 MG TAB PO SCH (20:45)
[2016-09-05] MEDS: ATORVASTATIN 10 MG TAB PO SCH (20:45)
[2016-09-06 05:52] VITALS: BP 122/66; PULSE 86; RESP 16; TEMP 98; O2SAT 93
[2016-09-06 08:58] VITALS: BP 122/66; PULSE 86; RESP 16; TEMP 98; O2SAT 93
[2016-09-06] MEDS: ARIPiprazole 10 MG TAB PO SCH (09:00)
[2016-09-06] MEDS: FERROUS SULFATE 325 MG (65 MG ELEMENTAL IRON) TAB PO SCH (09:00)
[2016-09-06] MEDS: FAMOTIDINE 20 MG TAB PO SCH ×2 (09:00→20:17)
[2016-09-06] MEDS: ASPIRIN EC 81 MG TABEC PO SCH (09:00)
[2016-09-06] MEDS: CALCIUM/VITAMIN D 250 MG/125 U TAB PO SCH (09:00)
[2016-09-06] MEDS: ENOXAPARIN SODIUM 40 MG/0.4 ML SYRINGE SQ SCH (09:00)
[2016-09-06] MEDS: LACTOBACILLUS ACIDOPHILUS TAB PO SCH ×3 (09:00→18:00)
[2016-09-06] MEDS: ESCITALOPRAM OXALATE 20 MG TAB PO SCH (09:00)
[2016-09-06] MEDS: PROPRANOLOL HCL 10 MG TAB PO SCH ×2 (09:00→20:17)
--- NOTE | 2016-09-06 10:17 | HHI.PYPN ---
Subjective Remarks Patient was seen and case discussed with nursing. Patient is pleasant and cooperative with exam. Asking for higher dose of Neurontin for her lower extremity pain. Saying she was also 1200 mg at home. Patient says she feels tired this morning. Remaining with a paranoid delusion that a gang member with the keys in street clothes is wandering the halls every night and visited her yesterday. Denies suicidal ideations thought or plan Objective Alert: Yes [place]: Person, Place, Date, Situation Mood: Anxious, Depressed Affect: Restricted Memory Intact: Comment (impaired) Hallucinations: Visual (decreased) Delusions: No Delusion Type: Paranoid, Other (none) Suicidal: Ideation (denies) Homicidal: Ideation (denies) Insight/Judgement Poor Vitals/IOs Vital Signs Date Time Temp Pulse Resp B/P Pulse Ox O2 Delivery O2 Flow Rate FiO2 09/06/16 08:58 98.0 86 16 122/66 93 Intake and Output 09/05/16 09/05/16 09/06/16 08:00 16:00 00:00 Intake Total 0 ml 1440 ml 240 ml Balance 0 ml 1440 ml 240 ml Assessment & Plan Problem List: (1) Major depressive disorder, recurrent ICD Code: F33.9 (2) Adjustment disorder ICD Code: F43.20 Assessment & Plan Continue current treatment plan Justification for Cont. Inpt. Patient will decompensate in a less restrictive setting Request HC Surrog/Guard Advoc?: No Problem Qualifiers (1) Major depressive disorder, recurrent: Qualified Code: F33.3 - Severe episode of recurrent major depressive disorder, with psychotic features (2) Adjustment disorder: Qualified Code: F43.24 - Adjustment disorder with disturbance of conduct Eder Brennan DO Sep 06, 2016 10:17
[2016-09-06] MEDS: LURASIDONE 40 MG TAB PO SCH (18:00)
[2016-09-06 18:44] VITALS: BP 132/74; PULSE 89; RESP 16; TEMP 99.3
[2016-09-06] MEDS: clonazePAM 1 MG TAB PO SCH (20:17)
[2016-09-06] MEDS: GABAPENTIN 300 MG CAP PO SCH (20:18)
[2016-09-06] MEDS: ATORVASTATIN 10 MG TAB PO SCH (20:18)
[2016-09-07 06:05] VITALS: BP 110/62; PULSE 97; RESP 16; TEMP 98.2; O2SAT 92
[2016-09-07] MEDS: GABAPENTIN 300 MG CAP PO SCH ×2 (09:50→21:28)
[2016-09-07] MEDS: FERROUS SULFATE 325 MG (65 MG ELEMENTAL IRON) TAB PO SCH (09:51)
[2016-09-07] MEDS: LACTOBACILLUS ACIDOPHILUS TAB PO SCH ×3 (09:51→17:51)
[2016-09-07] MEDS: ASPIRIN EC 81 MG TABEC PO SCH (09:51)
[2016-09-07] MEDS: ESCITALOPRAM OXALATE 20 MG TAB PO SCH (09:52)
[2016-09-07] MEDS: ARIPiprazole 10 MG TAB PO SCH (09:52)
[2016-09-07] MEDS: FAMOTIDINE 20 MG TAB PO SCH ×2 (09:53→21:28)
[2016-09-07] MEDS: CALCIUM/VITAMIN D 250 MG/125 U TAB PO SCH (09:54)
[2016-09-07] MEDS: PROPRANOLOL HCL 10 MG TAB PO SCH ×2 (09:54→21:28)
[2016-09-07] MEDS: ENOXAPARIN SODIUM 40 MG/0.4 ML SYRINGE SQ SCH (09:55)
--- NOTE | 2016-09-07 17:18 | HHI.PYPN ---
Subjective Remarks Patient discussed with treatment team and patient's daughter, and medical student Florinda, chart review, patient seen on unit. Patient does state she feels mother is just about back to where she was before that she is doing better. We also did discuss placement issues with various [facility] to be explored. Patient calm on the unit still states her pain is essentially gone. She is, pleasant with me continues willing to look at placement options, compliant medications Review of Systems Except as stated in HPI: all other systems reviewed are Neg Objective Alert: Yes [place]: Person, Place, Date, Situation Mood: Anxious, Depressed Affect: Restricted Memory Intact: Comment (impaired) Hallucinations: Visual (decreased) Delusions: No Delusion Type: Paranoid, Other (none) Suicidal: Ideation (denies) Homicidal: Ideation (denies) Insight/Judgement Poor Vitals/IOs Vital Signs Date Time Temp Pulse Resp B/P Pulse Ox O2 Delivery O2 Flow Rate FiO2 09/07/16 06:05 98.2 97 16 110/62 92 Intake and Output 09/06/16 09/06/16 09/07/16 08:00 16:00 00:00 Intake Total 480 ml 480 ml Balance 480 ml 480 ml Assessment & Plan Problem List: (1) Major depressive disorder, recurrent ICD Code: F33.9 (2) Adjustment disorder ICD Code: F43.20 Assessment & Plan Estimated LOS: days patient continues depressed though improving, now denies suicidality. Compliant medications. Placement may become problematic Justification for Cont. Inpt. At this time patient will decompensate if placed in the lower level of care Discharge Planning To be determined Request HC Surrog/Guard Advoc?: No Problem Qualifiers (1) Major depressive disorder, recurrent: Qualified Code: F33.3 - Severe episode of recurrent major depressive disorder, with psychotic features (2) Adjustment disorder: Qualified Code: F43.24 - Adjustment disorder with disturbance of conduct Lavelle De La Vega MD Sep 07, 2016 17:18
[2016-09-07] MEDS: LURASIDONE 40 MG TAB PO SCH (17:51)
[2016-09-07] MEDS: ACETAMINOPHEN 325 MG TAB PO PRN (17:52)
[2016-09-07 18:00] VITALS: BP 133/63; PULSE 85; RESP 17; TEMP 98; O2SAT 93
[2016-09-07] MEDS: clonazePAM 1 MG TAB PO SCH (21:27)
[2016-09-07] MEDS: ATORVASTATIN 10 MG TAB PO SCH (21:27)
[2016-09-08 05:34] VITALS: BP 108/62; PULSE 88; RESP 16; TEMP 98.5; O2SAT 93
[2016-09-08] MEDS: ARIPiprazole 10 MG TAB PO SCH ×3 (08:32→09:25)
[2016-09-08] MEDS: PROPRANOLOL HCL 10 MG TAB PO SCH ×2 (08:33→21:02)
[2016-09-08] MEDS: CALCIUM/VITAMIN D 250 MG/125 U TAB PO SCH (09:25)
[2016-09-08] MEDS: FERROUS SULFATE 325 MG (65 MG ELEMENTAL IRON) TAB PO SCH (09:25)
[2016-09-08] MEDS: ASPIRIN EC 81 MG TABEC PO SCH (09:25)
[2016-09-08] MEDS: GABAPENTIN 300 MG CAP PO SCH ×2 (09:25→21:02)
[2016-09-08] MEDS: FAMOTIDINE 20 MG TAB PO SCH ×2 (09:25→21:03)
[2016-09-08] MEDS: ESCITALOPRAM OXALATE 20 MG TAB PO SCH (09:26)
[2016-09-08] MEDS: LACTOBACILLUS ACIDOPHILUS TAB PO SCH ×3 (09:26→18:25)
[2016-09-08] MEDS: ENOXAPARIN SODIUM 40 MG/0.4 ML SYRINGE SQ SCH (09:29)
--- NOTE | 2016-09-08 11:56 | HHI.PYPN ---
Subjective Remarks Patient seen in her room with nurse Sammie, chart reviewed, patient laying in bed alert oriented calm cooperative sitting she is "waiting for that bolt of energy". Otherwise patient denies suicidality homicidality voices or visions. Is excited about possible to find placement soon. For now continue treatment Review of Systems Except as stated in HPI: all other systems reviewed are Neg Objective Alert: Yes [place]: Person, Place, Date, Situation Mood: Anxious, Depressed Affect: Restricted Memory Intact: Comment (impaired) Hallucinations: Visual (decreased) Delusions: No Delusion Type: Paranoid, Other (none) Suicidal: Ideation (denies) Homicidal: Ideation (denies) Insight/Judgement Poor Vitals/IOs Vital Signs Date Time Temp Pulse Resp B/P Pulse Ox O2 Delivery O2 Flow Rate FiO2 09/08/16 05:34 98.5 88 16 108/62 93 Intake and Output 09/07/16 09/07/16 09/08/16 08:00 16:00 00:00 Intake Total 0 ml 700 ml Balance 0 ml 700 ml Assessment & Plan Problem List: (1) Major depressive disorder, recurrent ICD Code: F33.9 (2) Adjustment disorder ICD Code: F43.20 Assessment & Plan Estimated LOS: days patient mood appears to be calming, she now denies suicidality homicidality, compliant medications. Justification for Cont. Inpt. At this time patient will decompensate if placed in a lower level of care Discharge Planning To be determined Request HC Surrog/Guard Advoc?: No Problem Qualifiers (1) Major depressive disorder, recurrent: Qualified Code: F33.3 - Severe episode of recurrent major depressive disorder, with psychotic features (2) Adjustment disorder: Qualified Code: F43.24 - Adjustment disorder with disturbance of conduct Lavelle De La Vega MD Sep 08, 2016 11:56
[2016-09-08] MEDS: LURASIDONE 40 MG TAB PO SCH (18:25)
[2016-09-08 20:28] VITALS: BP 129/75; PULSE 103; RESP 16; TEMP 98.2; O2SAT 94
[2016-09-08] MEDS: ATORVASTATIN 10 MG TAB PO SCH (21:02)
[2016-09-08] MEDS: clonazePAM 1 MG TAB PO SCH (21:03)
[2016-09-09 05:38] VITALS: BP 112/56; PULSE 79; RESP 16; TEMP 96.7; O2SAT 95
[2016-09-09] MEDS: FAMOTIDINE 20 MG TAB PO SCH ×2 (08:13→20:36)
[2016-09-09] MEDS: ASPIRIN EC 81 MG TABEC PO SCH (08:13)
[2016-09-09] MEDS: CALCIUM/VITAMIN D 250 MG/125 U TAB PO SCH (08:13)
[2016-09-09] MEDS: GABAPENTIN 300 MG CAP PO SCH ×2 (08:13→20:36)
[2016-09-09] MEDS: ESCITALOPRAM OXALATE 20 MG TAB PO SCH (08:13)
[2016-09-09] MEDS: FERROUS SULFATE 325 MG (65 MG ELEMENTAL IRON) TAB PO SCH (08:14)
[2016-09-09] MEDS: LACTOBACILLUS ACIDOPHILUS TAB PO SCH ×3 (08:14→17:02)
[2016-09-09] MEDS: PROPRANOLOL HCL 10 MG TAB PO SCH ×2 (08:18→20:41)
[2016-09-09] MEDS: ENOXAPARIN SODIUM 40 MG/0.4 ML SYRINGE SQ SCH (08:19)
--- NOTE | 2016-09-09 15:01 | HHI.PYPN ---
Subjective Remarks Patient seen in day room with floor staff, patient calm cooperative continues to be willing to go to [facility] but now was starting to show some consideration of wanting her own place. Patient compliant medications no other behavioral problem for now continue treatment Review of Systems Except as stated in HPI: all other systems reviewed are Neg Objective Alert: Yes [place]: Person, Place, Date, Situation Mood: Anxious, Depressed Affect: Restricted Memory Intact: Comment (impaired) Hallucinations: Visual (decreased) Delusions: No Delusion Type: Paranoid, Other (none) Suicidal: Ideation (denies) Homicidal: Ideation (denies) Insight/Judgement Poor Vitals/IOs Vital Signs Date Time Temp Pulse Resp B/P Pulse Ox O2 Delivery O2 Flow Rate FiO2 09/09/16 05:38 96.7 79 16 112/56 95 Intake and Output 09/08/16 09/08/16 09/09/16 08:00 16:00 00:00 Intake Total 120 ml 960 ml 480 ml Balance 120 ml 960 ml 480 ml Assessment & Plan Problem List: (1) Major depressive disorder, recurrent ICD Code: F33.9 (2) Adjustment disorder ICD Code: F43.20 Assessment & Plan Estimated LOS: days patient is somewhat calmer more focused, though socially some difficulties with her judgment related to placement. For now continue treatment Justification for Cont. Inpt. At this time patient will decompensate if placed in a lower level of care Discharge Planning To be determined Request HC Surrog/Guard Advoc?: No Problem Qualifiers (1) Major depressive disorder, recurrent: Qualified Code: F33.3 - Severe episode of recurrent major depressive disorder, with psychotic features (2) Adjustment disorder: Qualified Code: F43.24 - Adjustment disorder with disturbance of conduct Lavelle De La Vega MD Sep 09, 2016 15:01
[2016-09-09] MEDS: LURASIDONE 40 MG TAB PO SCH (17:02)
[2016-09-09 18:00] VITALS: BP 132/65; PULSE 64; RESP 16; TEMP 97; O2SAT 97
[2016-09-09] MEDS: clonazePAM 1 MG TAB PO SCH (20:36)
[2016-09-09] MEDS: ATORVASTATIN 10 MG TAB PO SCH (20:41)
[2016-09-09] MEDS: ACETAMINOPHEN 325 MG TAB PO PRN (21:47)
[2016-09-10 06:35] VITALS: BP 127/56; PULSE 92; RESP 16; TEMP 98.7; O2SAT 94
[2016-09-10] MEDS: CALCIUM/VITAMIN D 250 MG/125 U TAB PO SCH (08:14)
[2016-09-10] MEDS: PROPRANOLOL HCL 10 MG TAB PO SCH ×2 (08:14→20:30)
[2016-09-10] MEDS: ARIPiprazole 10 MG TAB PO SCH (08:14)
[2016-09-10] MEDS: GABAPENTIN 300 MG CAP PO SCH ×2 (08:14→20:30)
[2016-09-10] MEDS: ASPIRIN EC 81 MG TABEC PO SCH (08:15)
[2016-09-10] MEDS: FAMOTIDINE 20 MG TAB PO SCH ×2 (08:15→20:30)
[2016-09-10] MEDS: FERROUS SULFATE 325 MG (65 MG ELEMENTAL IRON) TAB PO SCH (08:18)
[2016-09-10] MEDS: ENOXAPARIN SODIUM 40 MG/0.4 ML SYRINGE SQ SCH (08:58)
[2016-09-10] MEDS: LACTOBACILLUS ACIDOPHILUS TAB PO SCH ×3 (08:58→17:05)
[2016-09-10] MEDS: ESCITALOPRAM OXALATE 20 MG TAB PO SCH (08:58)
--- NOTE | 2016-09-10 15:23 | HHI.PYPN ---
Subjective Remarks Patient seen in her room with medical student Florinda and nurse Jeremiah. Patient laying in bed with covers to her chin saying she is cold. (The room is chilly) patient denying voices or visions denies suicidality, appears cooperative with her medication. Is aware now of need to find appropriate placement Review of Systems Except as stated in HPI: all other systems reviewed are Neg Objective Alert: Yes [place]: Person, Place, Date, Situation Mood: Anxious, Depressed Affect: Restricted Memory Intact: Comment (impaired) Hallucinations: Visual (decreased) Delusions: No Delusion Type: Paranoid, Other (none) Suicidal: Ideation (denies) Homicidal: Ideation (denies) Insight/Judgement Poor Vitals/IOs Vital Signs Date Time Temp Pulse Resp B/P Pulse Ox O2 Delivery O2 Flow Rate FiO2 09/10/16 06:35 98.7 92 16 127/56 94 Intake and Output 09/09/16 09/09/16 09/10/16 08:00 16:00 00:00 Intake Total 720 ml 480 ml Balance 720 ml 480 ml Assessment & Plan Problem List: (1) Major depressive disorder, recurrent ICD Code: F33.9 (2) Adjustment disorder ICD Code: F43.20 Assessment & Plan Estimated LOS: days patient depression is still lifting, she is compliant with medications, showing some insight into need for appropriate placement for now continue treatment Justification for Cont. Inpt. At this time patient would decompensate if placed a lower level of care Discharge Planning To be determined Request HC Surrog/Guard Advoc?: No Problem Qualifiers (1) Major depressive disorder, recurrent: Qualified Code: F33.3 - Severe episode of recurrent major depressive disorder, with psychotic features (2) Adjustment disorder: Qualified Code: F43.24 - Adjustment disorder with disturbance of conduct Lavelle De La Vega MD Sep 10, 2016 15:23
[2016-09-10] MEDS: LURASIDONE 40 MG TAB PO SCH (17:05)
[2016-09-10 19:14] LABS: BACTERIA, URINE RARE /hpf; BLOOD, URINE NEG (NEG); COMMENT (UR) CULT NOT INDICATED; CULTURE IF INDICATED CULT NOT INDICATED; GLUCOSE,URINE NEG (NEG); KETONE, URINE NEG (NEG); MUCUS URINE FEW /lpf (OCC); NITRITE,URINE NEG (NEG); PH, URINE 5.5 (5.0-8.5); SQUAMOUS EPITHELIAL CELL URINE 4 /hpf (0-5); URINE COLOR YELLOW (YELLW/STRAW)
[2016-09-10] MEDS: ACETAMINOPHEN 325 MG TAB PO PRN (19:33)
[2016-09-10 19:44] VITALS: BP 171/84; PULSE 85; RESP 17; TEMP 98.8; O2SAT 95
[2016-09-10] MEDS: clonazePAM 1 MG TAB PO SCH (20:30)
[2016-09-10] MEDS: ATORVASTATIN 10 MG TAB PO SCH (20:30)
[2016-09-11 05:59] VITALS: BP 108/50; PULSE 89; RESP 18; TEMP 98.2; O2SAT 95
[2016-09-11] MEDS: GABAPENTIN 300 MG CAP PO SCH ×2 (08:54→21:14)
[2016-09-11] MEDS: ASPIRIN EC 81 MG TABEC PO SCH (08:55)
[2016-09-11] MEDS: CALCIUM/VITAMIN D 250 MG/125 U TAB PO SCH (08:55)
[2016-09-11] MEDS: LACTOBACILLUS ACIDOPHILUS TAB PO SCH ×3 (08:55→17:55)
[2016-09-11] MEDS: ARIPiprazole 10 MG TAB PO SCH (08:55)
[2016-09-11] MEDS: FERROUS SULFATE 325 MG (65 MG ELEMENTAL IRON) TAB PO SCH (08:55)
[2016-09-11] MEDS: ESCITALOPRAM OXALATE 20 MG TAB PO SCH (08:56)
[2016-09-11] MEDS: FAMOTIDINE 20 MG TAB PO SCH ×2 (08:56→21:14)
[2016-09-11] MEDS: ENOXAPARIN SODIUM 40 MG/0.4 ML SYRINGE SQ SCH (08:57)
[2016-09-11] MEDS: PROPRANOLOL HCL 10 MG TAB PO SCH ×2 (09:00→21:14)
--- NOTE | 2016-09-11 14:09 | HHI.PYPN ---
Subjective Remarks She seen in dayroom with medical student Florinda, patient calm pleasant with me. Is coping with placement issues. Us complaining of some frequent diarrheal movements. Status testing done for C. difficile last week which came back negative. Will have staff monitor frequency consistency of her stools Review of Systems Constitutional: DENIES: Diaphoretic episodes, Fatigue, Fever, Weight gain, Weight loss, Chills, Dizziness, Change in appetite, Night Sweats Endocrine: DENIES: Abnorml menstrual pattern, Heat/cold intolerance, Polydipsia , Polyuria, Polyphagia Eyes: DENIES: Blurred vision, Diplopia, Eye inflammation, Eye pain, Vision loss , Photosensitivity, Double Vision Ears, nose, mouth, throat: DENIES: Tinnitus, Hearing loss, Vertigo, Nasal discharge, Oral lesions, Throat pain, Hoarseness, Ear Pain, Running Nose, Epistaxis, Sinus Pain, Toothache, Odynophagia Respiratory: DENIES: Apneas, Cough, Snoring, Wheezing, Hemoptysis, Sputum production, Shortness of breath Cardiovascular: DENIES: Chest pain, Palpitations, Syncope, Dyspnea on Exertion , PND, Lower Extremity Edema, Orthopnea, Claudication Gastrointestinal: COMPLAINS OF: Diarrhea, DENIES: Abdominal pain, Black stools , Bloody stools, Constipation, Nausea, Vomiting, Difficulty Swallowing, Anorexia Genitourinary: DENIES: Abnormal vaginal bleeding, Dysmenorrhea, Dyspareunia, Sexual dysfunction, Urinary frequency, Urinary incontinence, Urgency, Hematuria , Dysuria, Nocturia, Vaginal discharge Musculoskeletal: DENIES: Joint pain, Muscle aches, Stiffness, Joint Swelling, Back pain, Neck pain Integumentary: DENIES: Abnormal pigmentation, Pruritus, Rash, Nail changes, Breast masses, Breast skin changes, Nipple discharge Hematologic/lymphatic: DENIES: Bruising, Lymphadenopathy Immunologic/allergic: DENIES: Eczema, Urticaria Neurologic: DENIES: Abnormal gait, Headache, Localized weakness, Paresthesias, Seizures, Speech Problems, Tremor, Poor Balance Psychiatric: DENIES: Anxiety, Confusion, Mood changes, Depression, Hallucinations, Agitation, Suicidal Ideation, Homicidal Ideation, Delusions Objective Alert: Yes [place]: Person, Place, Date, Situation Mood: Anxious, Depressed Affect: Restricted Memory Intact: Comment (impaired) Hallucinations: Visual (decreased) Delusions: No Delusion Type: Paranoid, Other (none) Suicidal: Ideation (denies) Homicidal: Ideation (denies) Insight/Judgement Poor Labs Test 09/10/16 19:04 Urine Color YELLOW Urine Turbidity HAZY Urine pH 5.5 Urine Specific [place] 1.019 Urine Protein NEG mg/dL Urine Glucose (UA) NEG mg/dL Urine Ketones NEG mg/dL Urine Occult Blood NEG Urine Nitrite NEG Urine Bilirubin NEG Urine Urobilinogen LESS THAN 2.0 MG/DL Urine Leukocyte Esterase MOD Urine RBC 1 /hpf Urine WBC 7 /hpf Urine Squamous Epithelial 4 /hpf Cells Urine Bacteria RARE /hpf Urine Mucus FEW /lpf Microscopic Urinalysis Comment CULT NOT INDICATED Vitals/IOs Vital Signs Date Time Temp Pulse Resp B/P Pulse Ox O2 Delivery O2 Flow Rate FiO2 09/11/16 05:59 98.2 89 18 108/50 95 Intake and Output 09/10/16 09/10/16 09/11/16 08:00 16:00 00:00 Intake Total 480 ml 600 ml Balance 480 ml 600 ml Assessment & Plan Problem List: (1) Major depressive disorder, recurrent ICD Code: F33.9 (2) Adjustment disorder ICD Code: F43.20 Assessment & Plan Estimated LOS: days patient continues calm cooperative now denying voices and denying suicidality. The complaining of some diarrheal bowel movements will have staff monitor and record Justification for Cont. Inpt. This time patient will decompensate and placed in the lower level of care Discharge Planning To be determined Request HC Surrog/Guard Advoc?: No Problem Qualifiers (1) Major depressive disorder, recurrent: Qualified Code: F33.3 - Severe episode of recurrent major depressive disorder, with psychotic features (2) Adjustment disorder: Qualified Code: F43.24 - Adjustment disorder with disturbance of conduct Lavelle De La Vega MD Sep 11, 2016 14:09
[2016-09-11] MEDS: LURASIDONE 40 MG TAB PO SCH (17:55)
[2016-09-11 18:08] VITALS: BP 158/86; PULSE 99; RESP 18; TEMP 98.2; O2SAT 96
[2016-09-11] MEDS: clonazePAM 1 MG TAB PO SCH (21:14)
[2016-09-11] MEDS: ATORVASTATIN 10 MG TAB PO SCH (21:14)
[2016-09-11] MEDS: hydrOXYzine HCL 50 MG TAB PO PRN (23:45)
[2016-09-11] MEDS: ACETAMINOPHEN 325 MG TAB PO PRN (23:46)
[2016-09-12 06:08] VITALS: BP 120/60; PULSE 77; RESP 16; TEMP 96.8; O2SAT 93
[2016-09-12] MEDS: ARIPiprazole 10 MG TAB PO SCH ×2 (08:25→09:22)
[2016-09-12] MEDS: LACTOBACILLUS ACIDOPHILUS TAB PO SCH ×3 (09:21→17:04)
[2016-09-12] MEDS: ASPIRIN EC 81 MG TABEC PO SCH (09:21)
[2016-09-12] MEDS: CALCIUM/VITAMIN D 250 MG/125 U TAB PO SCH (09:21)
[2016-09-12] MEDS: ESCITALOPRAM OXALATE 20 MG TAB PO SCH (09:22)
[2016-09-12] MEDS: FERROUS SULFATE 325 MG (65 MG ELEMENTAL IRON) TAB PO SCH (09:22)
[2016-09-12] MEDS: GABAPENTIN 300 MG CAP PO SCH ×2 (09:22→20:55)
[2016-09-12] MEDS: FAMOTIDINE 20 MG TAB PO SCH ×2 (09:22→20:55)
[2016-09-12 10:00] VITALS: BP 132/80; PULSE 62
[2016-09-12] MEDS: ACETAMINOPHEN 325 MG TAB PO PRN ×2 (11:09→17:16)
[2016-09-12] MEDS: PROPRANOLOL HCL 10 MG TAB PO SCH ×2 (11:09→20:55)
[2016-09-12] MEDS: ENOXAPARIN SODIUM 40 MG/0.4 ML SYRINGE SQ SCH (11:11)
[2016-09-12] MEDS: LURASIDONE 40 MG TAB PO SCH (17:04)
[2016-09-12 18:00] VITALS: BP 137/69; PULSE 89; RESP 16; TEMP 98; O2SAT 94
--- NOTE | 2016-09-12 19:15 | HHI.PYPN ---
Subjective Remarks Pt seen and discussed with staff. Pt is compliant with treatment and denies medication side effects. She denies psychosis and reports improved mood. No SI/ HI Objective Alert: Yes [place]: Person, Place, Date, Situation Mood: Calm, Depressed Affect: Restricted Memory Intact: Comment (impaired) Hallucinations: Other (none) Delusions: No Delusion Type: Other (none) Suicidal: Ideation (denies) Homicidal: Ideation (denies) Insight/Judgement limited Vitals/IOs Vital Signs Date Time Temp Pulse Resp B/P Pulse Ox O2 Delivery O2 Flow Rate FiO2 09/12/16 18:00 98.0 89 16 137/69 94 Intake and Output 09/11/16 09/11/16 09/12/16 08:00 16:00 00:00 Intake Total 0 ml 1560 ml 480 ml Balance 0 ml 1560 ml 480 ml Assessment & Plan Problem List: (1) Major depressive disorder, recurrent ICD Code: F33.9 (2) Adjustment disorder ICD Code: F43.20 Assessment & Plan Continue current tx plan. Estimated LOS: days Justification for Cont. Inpt. impairments in self care Request HC Surrog/Guard Advoc?: No Problem Qualifiers (1) Major depressive disorder, recurrent: Qualified Code: F33.3 - Severe episode of recurrent major depressive disorder, with psychotic features (2) Adjustment disorder: Qualified Code: F43.24 - Adjustment disorder with disturbance of conduct Sallie Cruz MD Sep 12, 2016 19:15
[2016-09-12] MEDS: clonazePAM 1 MG TAB PO SCH (20:55)
[2016-09-12] MEDS: ATORVASTATIN 10 MG TAB PO SCH (20:55)
[2016-09-13 05:12] VITALS: BP 111/58; PULSE 82; RESP 18; TEMP 98; O2SAT 95
[2016-09-13] MEDS: ENOXAPARIN SODIUM 40 MG/0.4 ML SYRINGE SQ SCH (09:00)
[2016-09-13] MEDS: PROPRANOLOL HCL 10 MG TAB PO SCH ×2 (09:00→21:39)
[2016-09-13 09:18] VITALS: BP 133/72; PULSE 102
[2016-09-13] MEDS: ESCITALOPRAM OXALATE 20 MG TAB PO SCH (10:19)
[2016-09-13] MEDS: CALCIUM/VITAMIN D 250 MG/125 U TAB PO SCH (10:19)
[2016-09-13] MEDS: ARIPiprazole 10 MG TAB PO SCH (10:20)
[2016-09-13] MEDS: LACTOBACILLUS ACIDOPHILUS TAB PO SCH ×3 (10:20→18:44)
[2016-09-13] MEDS: FERROUS SULFATE 325 MG (65 MG ELEMENTAL IRON) TAB PO SCH (10:20)
[2016-09-13] MEDS: ASPIRIN EC 81 MG TABEC PO SCH (10:20)
[2016-09-13] MEDS: FAMOTIDINE 20 MG TAB PO SCH ×2 (10:20→21:39)
[2016-09-13] MEDS: GABAPENTIN 300 MG CAP PO SCH ×2 (10:26→21:39)
[2016-09-13] MEDS: hydrOXYzine HCL 50 MG TAB PO PRN (10:26)
[2016-09-13] MEDS: ACETAMINOPHEN 325 MG TAB PO PRN ×2 (10:27→21:47)
[2016-09-13] MEDS: LURASIDONE 40 MG TAB PO SCH (18:44)
--- NOTE | 2016-09-13 19:38 | HHI.PYPN ---
Subjective Remarks Pt seen and discussed with staff. She is compliant with medication side effects. No behavioral problems. No SI/HI. Objective Alert: Yes [place]: Person, Place, Date, Situation Mood: Calm, Depressed Affect: Restricted Memory Intact: Comment (impaired) Hallucinations: Other (none) Delusions: No Delusion Type: Other (none) Suicidal: Ideation (denies) Homicidal: Ideation (denies) Insight/Judgement poor Vitals/IOs Vital Signs Date Time Temp Pulse Resp B/P Pulse Ox O2 Delivery O2 Flow Rate FiO2 09/13/16 09:18 102 133/72 09/13/16 05:12 98.0 18 95 Intake and Output 09/12/16 09/12/16 09/13/16 08:00 16:00 00:00 Intake Total 240 ml 720 ml 960 ml Balance 240 ml 720 ml 960 ml Assessment & Plan Problem List: (1) Major depressive disorder, recurrent ICD Code: F33.9 (2) Adjustment disorder ICD Code: F43.20 Assessment & Plan Continue current tx plan. Estimated LOS: days Justification for Cont. Inpt. risk of decompensation Request HC Surrog/Guard Advoc?: No Problem Qualifiers (1) Major depressive disorder, recurrent: Qualified Code: F33.3 - Severe episode of recurrent major depressive disorder, with psychotic features (2) Adjustment disorder: Qualified Code: F43.24 - Adjustment disorder with disturbance of conduct Sallie Cruz MD Sep 13, 2016 19:38
[2016-09-13 20:35] VITALS: BP 137/65; PULSE 78; RESP 20; TEMP 97.8; O2SAT 94
[2016-09-13] MEDS: clonazePAM 1 MG TAB PO SCH (21:38)
[2016-09-13] MEDS: ATORVASTATIN 10 MG TAB PO SCH (21:39)
[2016-09-14 05:42] VITALS: BP 149/103; PULSE 89; RESP 16; TEMP 97.9; O2SAT 95
[2016-09-14] MEDS: ESCITALOPRAM OXALATE 20 MG TAB PO SCH (10:51)
[2016-09-14] MEDS: PROPRANOLOL HCL 10 MG TAB PO SCH ×2 (10:52→21:19)
[2016-09-14] MEDS: CALCIUM/VITAMIN D 250 MG/125 U TAB PO SCH (10:52)
[2016-09-14] MEDS: FERROUS SULFATE 325 MG (65 MG ELEMENTAL IRON) TAB PO SCH (10:52)
[2016-09-14] MEDS: LACTOBACILLUS ACIDOPHILUS TAB PO SCH ×3 (10:52→17:06)
[2016-09-14] MEDS: GABAPENTIN 300 MG CAP PO SCH ×2 (10:52→21:21)
[2016-09-14] MEDS: FAMOTIDINE 20 MG TAB PO SCH ×2 (10:52→21:20)
[2016-09-14] MEDS: ARIPiprazole 10 MG TAB PO SCH (10:52)
[2016-09-14] MEDS: ASPIRIN EC 81 MG TABEC PO SCH (10:52)
[2016-09-14] MEDS: ENOXAPARIN SODIUM 40 MG/0.4 ML SYRINGE SQ SCH (10:53)
--- NOTE | 2016-09-14 14:46 | HHI.PYPN ---
Subjective Remarks Patient discussed with treatment team and medical student Florinda, chart review , patient seen on unit. Patient overall is calm with me cooperative compliant medications. Does seem to be showing more willingness to find an appropriate placement. Does denies suicidality homicidality at this time Review of Systems Except as stated in HPI: all other systems reviewed are Neg Objective Alert: Yes [place]: Person, Place, Date, Situation Mood: Calm, Depressed Affect: Restricted Memory Intact: Comment (impaired) Hallucinations: Other (none) Delusions: No Delusion Type: Other (none) Suicidal: Ideation (denies) Homicidal: Ideation (denies) Insight/Judgement Poor Vitals/IOs Vital Signs Date Time Temp Pulse Resp B/P Pulse Ox O2 Delivery O2 Flow Rate FiO2 09/14/16 05:42 97.9 89 16 149/103 95 Intake and Output 09/13/16 09/13/16 09/14/16 08:00 16:00 00:00 Intake Total 0 ml 800 ml Balance 0 ml 800 ml Assessment & Plan Problem List: (1) Major depressive disorder, recurrent ICD Code: F33.9 (2) Adjustment disorder ICD Code: F43.20 Assessment & Plan Estimated LOS: days patient continues depressed but improving, compliant medications, showing more willingness to address issues of placement Justification for Cont. Inpt. At this time patient will decompensate placed a lower level of care Discharge Planning To be determined Request HC Surrog/Guard Advoc?: No Problem Qualifiers (1) Major depressive disorder, recurrent: Qualified Code: F33.3 - Severe episode of recurrent major depressive disorder, with psychotic features (2) Adjustment disorder: Qualified Code: F43.24 - Adjustment disorder with disturbance of conduct Lavelle De La Vega MD Sep 14, 2016 14:46
[2016-09-14] MEDS: ACETAMINOPHEN 325 MG TAB PO PRN (15:01)
[2016-09-14] MEDS: hydrOXYzine HCL 50 MG TAB PO PRN (15:02)
[2016-09-14] MEDS: LURASIDONE 40 MG TAB PO SCH (17:06)
[2016-09-14 18:00] VITALS: BP 123/82; PULSE 94; RESP 17; TEMP 97.7; O2SAT 95
[2016-09-14] MEDS: clonazePAM 1 MG TAB PO SCH (21:18)
[2016-09-14] MEDS: ATORVASTATIN 10 MG TAB PO SCH (21:21)
[2016-09-15 06:14] VITALS: BP 108/65; PULSE 80; RESP 18; TEMP 98.1; O2SAT 94
[2016-09-15] MEDS: LACTOBACILLUS ACIDOPHILUS TAB PO SCH ×3 (09:00→18:00)
[2016-09-15] MEDS: FAMOTIDINE 20 MG TAB PO SCH ×2 (09:00→20:58)
[2016-09-15] MEDS: ARIPiprazole 10 MG TAB PO SCH (09:00)
[2016-09-15] MEDS: PROPRANOLOL HCL 10 MG TAB PO SCH ×2 (09:00→20:58)
[2016-09-15] MEDS: ENOXAPARIN SODIUM 40 MG/0.4 ML SYRINGE SQ SCH (09:00)
[2016-09-15] MEDS: GABAPENTIN 300 MG CAP PO SCH ×2 (09:00→20:58)
[2016-09-15] MEDS: CALCIUM/VITAMIN D 250 MG/125 U TAB PO SCH (09:00)
[2016-09-15] MEDS: FERROUS SULFATE 325 MG (65 MG ELEMENTAL IRON) TAB PO SCH (09:00)
[2016-09-15] MEDS: ESCITALOPRAM OXALATE 20 MG TAB PO SCH (09:00)
[2016-09-15] MEDS: ASPIRIN EC 81 MG TABEC PO SCH (09:00)
--- NOTE | 2016-09-15 10:20 | HHI.PYPN ---
Subjective Remarks Patient seen in day room with nurse Mariia and medical student Florinda, chart review, patient overall no problems denying suicidality homicidality voices or visions, has been compliant with medications. Does complain of some persistent pain in her left leg asking for more Neurontin. However patient affect does not reflect a painful situation. Patient continues cooperative waiting for appropriate placement Review of Systems Except as stated in HPI: all other systems reviewed are Neg Objective Alert: Yes [place]: Person, Place, Date, Situation Mood: Calm, Depressed Affect: Restricted Memory Intact: Comment (impaired) Hallucinations: Other (none) Delusions: No Delusion Type: Other (none) Suicidal: Ideation (denies) Homicidal: Ideation (denies) Insight/Judgement Poor Vitals/IOs Vital Signs Date Time Temp Pulse Resp B/P Pulse Ox O2 Delivery O2 Flow Rate FiO2 09/15/16 06:14 98.1 80 18 108/65 94 Intake and Output 09/14/16 09/14/16 09/15/16 08:00 16:00 00:00 Intake Total 0 ml 1080 ml 1200 ml Balance 0 ml 1080 ml 1200 ml Assessment & Plan Problem List: (1) Major depressive disorder, recurrent ICD Code: F33.9 (2) Adjustment disorder ICD Code: F43.20 Assessment & Plan Estimated LOS: days patient moved continues to improve, she remains somewhat somatic but redirectable and cooperative. Placement remains problematic Justification for Cont. Inpt. At this time patient will decompensate the placed a lower level of care Discharge Planning To be determined Request HC Surrog/Guard Advoc?: No Problem Qualifiers (1) Major depressive disorder, recurrent: Qualified Code: F33.3 - Severe episode of recurrent major depressive disorder, with psychotic features (2) Adjustment disorder: Qualified Code: F43.24 - Adjustment disorder with disturbance of conduct Lavelle De La Vega MD Sep 15, 2016 10:20
[2016-09-15] MEDS: hydrOXYzine HCL 50 MG TAB PO PRN (11:34)
[2016-09-15 18:18] VITALS: BP 148/71; PULSE 100; RESP 16; TEMP 97.8; O2SAT 94
[2016-09-15] MEDS: LURASIDONE 40 MG TAB PO SCH (18:34)
[2016-09-15] MEDS: ATORVASTATIN 10 MG TAB PO SCH (20:58)
[2016-09-15] MEDS: clonazePAM 1 MG TAB PO SCH (20:58)
[2016-09-16 06:27] VITALS: BP 133/60; PULSE 100; RESP 18; TEMP 98.6; O2SAT 95
[2016-09-16] MEDS: ASPIRIN EC 81 MG TABEC PO SCH (09:00)
[2016-09-16] MEDS: ESCITALOPRAM OXALATE 20 MG TAB PO SCH (09:00)
[2016-09-16] MEDS: FERROUS SULFATE 325 MG (65 MG ELEMENTAL IRON) TAB PO SCH (09:47)
[2016-09-16] MEDS: PROPRANOLOL HCL 10 MG TAB PO SCH ×2 (09:47→20:32)
[2016-09-16] MEDS: GABAPENTIN 300 MG CAP PO SCH ×2 (09:47→20:32)
[2016-09-16] MEDS: LACTOBACILLUS ACIDOPHILUS TAB PO SCH ×3 (09:47→17:25)
[2016-09-16] MEDS: ARIPiprazole 10 MG TAB PO SCH (09:47)
[2016-09-16] MEDS: FAMOTIDINE 20 MG TAB PO SCH ×2 (09:47→20:32)
[2016-09-16] MEDS: CALCIUM/VITAMIN D 250 MG/125 U TAB PO SCH (09:48)
[2016-09-16] MEDS: ENOXAPARIN SODIUM 40 MG/0.4 ML SYRINGE SQ SCH (09:49)
--- NOTE | 2016-09-16 11:03 | HHI.PYPN ---
Subjective Remarks Patient seen in her room with nurse Sima. Chart review. Patient compliant medications. At this time no complaints less somatizations been medication seeking than yesterday. Patient continues cooperative working with placement issues. However she still has very little insight into behaviors that led to this hospitalization For now continue treatment Review of Systems Except as stated in HPI: all other systems reviewed are Neg Objective Alert: Yes [place]: Person, Place, Date, Situation Mood: Calm, Depressed Affect: Restricted Memory Intact: Comment (impaired) Hallucinations: Other (none) Delusions: No Delusion Type: Other (none) Suicidal: Ideation (denies) Homicidal: Ideation (denies) Insight/Judgement Poor Vitals/IOs Vital Signs Date Time Temp Pulse Resp B/P Pulse Ox O2 Delivery O2 Flow Rate FiO2 09/16/16 06:27 98.6 100 18 133/60 95 Intake and Output 09/15/16 09/15/16 09/16/16 08:00 16:00 00:00 Intake Total 120 ml 480 ml 1200 ml Balance 120 ml 480 ml 1200 ml Assessment & Plan Problem List: (1) Major depressive disorder, recurrent ICD Code: F33.9 (2) Adjustment disorder ICD Code: F43.20 Assessment & Plan Estimated LOS: days patient remains calm cooperative compliant medications though showing little insight into behaviors that led to this hospitalization patient remains problematic Justification for Cont. Inpt. At this time patient will decompensate if placed in the lower level of care Discharge Planning To be determined Request HC Surrog/Guard Advoc?: No Problem Qualifiers (1) Major depressive disorder, recurrent: Qualified Code: F33.3 - Severe episode of recurrent major depressive disorder, with psychotic features (2) Adjustment disorder: Qualified Code: F43.24 - Adjustment disorder with disturbance of conduct Lavelle De La Vega MD Sep 16, 2016 11:03
[2016-09-16] MEDS: hydrOXYzine HCL 50 MG TAB PO PRN (14:49)
[2016-09-16] MEDS: LURASIDONE 40 MG TAB PO SCH (17:26)
[2016-09-16 18:00] VITALS: BP 124/54; PULSE 81; RESP 18; TEMP 98.1; O2SAT 93
[2016-09-16] MEDS: clonazePAM 1 MG TAB PO SCH (20:32)
[2016-09-16] MEDS: ATORVASTATIN 10 MG TAB PO SCH (20:34)
[2016-09-17 05:48] VITALS: BP 102/53; PULSE 86; RESP 16; TEMP 98.5; O2SAT 94
--- NOTE | 2016-09-17 08:41 | HHI.PYPN ---
Subjective Remarks Patient seen in her room with nurse Sima and medical student Florinda patient continues to cope well with placement issues. She denies suicidality homicidality voices or visions, compliant with her medications for now continue treatment Review of Systems Except as stated in HPI: all other systems reviewed are Neg Objective Alert: Yes [place]: Person, Place, Date, Situation Mood: Calm, Depressed Affect: Restricted Memory Intact: Comment (impaired) Hallucinations: Other (none) Delusions: No Delusion Type: Other (none) Suicidal: Ideation (denies) Homicidal: Ideation (denies) Insight/Judgement Poor Vitals/IOs Vital Signs Date Time Temp Pulse Resp B/P Pulse Ox O2 Delivery O2 Flow Rate FiO2 09/17/16 05:48 98.5 86 16 102/53 94 Intake and Output 09/16/16 09/16/16 09/17/16 08:00 16:00 00:00 Intake Total 0 ml 960 ml 1320 ml Balance 0 ml 960 ml 1320 ml Assessment & Plan Problem List: (1) Major depressive disorder, recurrent ICD Code: F33.9 (2) Adjustment disorder ICD Code: F43.20 Assessment & Plan Estimated LOS: days patient depression continues to resolve, still though with little insight into her behaviors and lift to this hospitalization but overall doing better with no behavior problems noted, compliant medications, placement remains problematic Justification for Cont. Inpt. At this time patient will decompensate placed in a lower level of care Discharge Planning To be determined Request HC Surrog/Guard Advoc?: No Problem Qualifiers (1) Major depressive disorder, recurrent: Qualified Code: F33.3 - Severe episode of recurrent major depressive disorder, with psychotic features (2) Adjustment disorder: Qualified Code: F43.24 - Adjustment disorder with disturbance of conduct Lavelle De La Vega MD Sep 17, 2016 08:41
[2016-09-17] MEDS: PROPRANOLOL HCL 10 MG TAB PO SCH (09:29)
[2016-09-17] MEDS: FAMOTIDINE 20 MG TAB PO SCH (09:29)
[2016-09-17] MEDS: ARIPiprazole 10 MG TAB PO SCH (09:29)
[2016-09-17] MEDS: CALCIUM/VITAMIN D 250 MG/125 U TAB PO SCH (09:29)
[2016-09-17] MEDS: LACTOBACILLUS ACIDOPHILUS TAB PO SCH ×2 (09:29→11:48)
[2016-09-17] MEDS: ESCITALOPRAM OXALATE 20 MG TAB PO SCH (09:29)
[2016-09-17] MEDS: FERROUS SULFATE 325 MG (65 MG ELEMENTAL IRON) TAB PO SCH (09:29)
[2016-09-17] MEDS: GABAPENTIN 300 MG CAP PO SCH (09:30)
[2016-09-17] MEDS: ASPIRIN EC 81 MG TABEC PO SCH (09:30)
[2016-09-17] MEDS: ENOXAPARIN SODIUM 40 MG/0.4 ML SYRINGE SQ SCH (09:30)
[2016-09-17] MEDS ORDERED: FERR325T PO (13:13)
[2016-09-17] MEDS ORDERED: LURA40 PO (13:13)
[2016-09-17] MEDS ORDERED: NEUR300C PO (13:13)
[2016-09-17] MEDS ORDERED: FAMO20TA2 PO (13:13)
[2016-09-17] MEDS ORDERED: ESCI20TA PO (13:13)
[2016-09-17] MEDS ORDERED: CLON1 PO (13:13)
[2016-09-17] MEDS ORDERED: OYST250T4 PO (13:13)
[2016-09-17] MEDS ORDERED: LACT PO (13:13)
[2016-09-17] MEDS ORDERED: ARIP1TAB12 PO (13:13)
[2016-09-17] MEDS ORDERED: PROP10TA6 PO (13:13)
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
== END 2016-09-17 16:10 | DRG 885 ==
LOC: NEDAMB 20:54 → NEDA 08-28 02:53 → H250 08-28 03:55
PROVIDERS: ADMIT Psychiatry & Neurology Psychiatry; ATTEND Psychiatry & Neurology Psychiatry
DX: F33.3 Major depressive disorder, recurrent, severe with psychotic symptoms (principal); C25.9 Malignant neoplasm of pancreas, unspecified; I69.354 Hemiplegia and hemiparesis following cerebral infarction affecting left non-dominant side; F01.50 Vascular dementia, unspecified severity, without behavioral disturbance, psychotic disturbance, mood disturbance, and anxiety; G62.9 Polyneuropathy, unspecified; K44.9 Diaphragmatic hernia without obstruction or gangrene; J44.9 Chronic obstructive pulmonary disease, unspecified; Z88.2 Allergy status to sulfonamides; Z88.8 Allergy status to other drugs, medicaments and biological substances; Z81.8 Family history of other mental and behavioral disorders; F41.9 Anxiety disorder, unspecified; M79.7 Fibromyalgia; E66.3 Overweight
CPT/HCPCS: 70551; 80048; 80053; 80061; 80307; 81001; 83735; 84443; 85025; 87493; 93306; 93880; 99284; J1650